=== PATIENT | female | born 1945 | race Caucasian/White ===

== ENCOUNTER → 2016-11-13 | Outpatient (CLI) | payer OTHER ==
[~2016-11-13] MED LIST: ACET-24 PO; ACET500T57 PO; ALKA SELTZER PO; AMOX500C3 PO; ASPEC81 PO; ASPI325T45 PO; CEFU500T16 PO; CLAR1TAB25 PO; CLB/200 PO; DENO60SO INJ; DICL1GEL12 TOP; DICLOFENAC GEL 1% TOP; FURO-85 PO; HYDR-5688 PO; LABE100T23 PO; LABE1TAB28 PO; MELO7.5T5 PO; METR-105 PO; METR1TAB4 PO; MULT-506 PO; OXYSR10 PO; RXC5 PO; SENN1TAB80 PO; SNK PO; ZOLP10TA PO
== END | disposition home or self-care (01) ==
LOC: C.LABPBG 15:03
PROVIDERS: ATTEND Urology
DX: R39.15 Urgency of urination (principal)

== ENCOUNTER → 2017-01-01 | Outpatient (CLI) | payer OTHER ==
[~2017-01-01] MED LIST changes: +CLAR-78 PO; -CLAR1TAB25 PO; -SENN1TAB80 PO; +SENN8.6T13 PO
== END | disposition home or self-care (01) ==
LOC: C.RDSM 07:59
PROVIDERS: ATTEND Physical Medicine & Rehabilitation
DX: M54.5 Low back pain (principal)

== ENCOUNTER → 2017-01-05 | Outpatient (CLI) | payer OTHER | END | disposition home or self-care (01) | LOC: C.RDSM 13:55 | PROVIDERS: ATTEND Orthopaedic Surgery Sports Medicine | DX: M17.0 Bilateral primary osteoarthritis of knee (principal) ==

== ENCOUNTER 2017-01-16 07:07 | Inpatient (IN) | payer OTHER ==
[2017-01-15 08:35] VITALS: BMI 31.0
--- NOTE | 2017-01-15 08:53 | HISTORY & PHYSICAL EXAMINATION ---
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 She has valgus alignment, bone to bone changes lateral compartment, osteophytes medial compartment and lateral compartment. She has failed attempts at conservative management including physical therapy, anti-inflammatories, relative rest, activity modification and presents for total knee arthroplasty. PAST MEDICAL HISTORY: Significant for hypertension, Lyme disease, osteoarthritis of the spine, acid reflux. FAMILY HISTORY: Otherwise unremarkable and noncontributory. SOCIAL HISTORY: The patient denies history of alcohol use, smoking or recreational drug use. PAST SURGICAL HISTORY: Significant for hysterectomy 35 years ago, right knee ligament surgery 30 years ago, right eye 5 years ago, knee scoped left knee 6 months ago. MEDICATIONS: Include Ambien 10 mg every day, Celebrex 200 mg p.o. daily. REVIEW OF SYSTEMS: Otherwise unremarkable. See history of present illness for pertinent positives. PHYSICAL EXAMINATION: GENERAL: This is a very pleasant 71-year-old white female, alert and oriented x3, in no acute distress. HEENT: Otherwise unremarkable. HEART: Irregular at 74 beats per minute. LUNGS: Clear without rales, rhonchi, or wheezes noted. ABDOMEN: Soft, nontender, nondistended. Bowel sounds are present in all 4 quadrants. No rectal examination was performed. MUSCULOSKELETAL EXAMINATION: Consistent with that of DJD of the left knee. ASSESSMENT AND PLAN: For total knee arthroplasty, postoperative pain management, DVT prophylaxis as necessary.
--- NOTE | 2017-01-15 09:11 | PAT Medication Instructions ---
Service Date Jan 15, 2017. Current Home Medication List Cefuroxime Axetil (Ceftin), 500 MG PO BID Celecoxib (CeleBREX), 200 MG PO QAM Denosumab (Prolia), 1 DOSE INJ [id number] Furosemide (Lasix), 20 MG PO QAM Labetalol Hcl (Labetalol Hcl), 100 MG PO BID Meloxicam (Mobic), 15 MG PO QAM Metronidazole (Flagyl), 250 MG PO TID Multivitamin (Multivitamin), 1 TAB PO QAM Zolpidem Tartrate (Ambien), 10 MG PO HS [Maricarmen [place]], 2 TAB PO PRN [Diclofenac Gel 1%], 1 DOSE TOP BID Medication Instructions For Your Scheduled Surgery Denosumab (Prolia), 1 DOSE INJ [id number] (continue as directed) - Check with surgeon for instructions: Meloxicam (Mobic), 15 MG PO QAM Celecoxib (CeleBREX), 200 MG PO QAM - Hold the following medications 24 hours prior to surgery: [Diclofenac Gel 1%], 1 DOSE TOP BID Multivitamin (Multivitamin), 1 TAB PO QAM - Hold the following medications the morning of surgery: [Maricarmen [place]], 2 TAB PO PRN Furosemide (Lasix), 20 MG PO QAM - Take the following medications the morning of surgery with a sip of water: Metronidazole (Flagyl), 250 MG PO TID Labetalol Hcl (Labetalol Hcl), 100 MG PO BID Cefuroxime Axetil (Ceftin), 500 MG PO BID - Take the following medications as scheduled the night before surgery: [Maricarmen [place]], 2 TAB PO PRN Zolpidem Tartrate (Ambien), 10 MG PO HS Metronidazole (Flagyl), 250 MG PO TID Labetalol Hcl (Labetalol Hcl), 100 MG PO BID Cefuroxime Axetil (Ceftin), 500 MG PO BID If you have any questions please call us at [phone] or [phone] or [phone]
--- NOTE | 2017-01-15 09:41 | DIAGNOSTIC IMAGING REPORT ---
CHEST PREADMISSION(PA/LAT) HISTORY: 71 years-old Female preadmission exam COMPARISON: None available TECHNIQUE: Frontal and lateral views of the chest FINDINGS: Cardiomediastinal and hilar silhouettes are within normal limits. No pneumothorax, pleural effusion, focal airspace consolidation or overt pulmonary edema. Mild to moderate degenerative changes about the shoulders bilaterally. There is mild convex left curvature of the lumbar spine, not completely imaged. IMPRESSION: No acute cardiopulmonary process. The above report was generated using voice recognition software. It may contain grammatical, syntax or spelling errors. Electronically signed by: Balbir Vizcarra M.D. 01/15/2017 9:39 AM Dictated Date/Time: 01/15/2017 9:38 AM
[2017-01-15 10:34] LABS: BASO % 0.4 %; BASO ABS # 0.02 K/uL (0-0.2); COMPLETE YES; EOS % 1.8 %; HEMATOCRIT 37.8 % (37-47); LYMPH % 35.3 %; LYMPH ABS # 1.58 K/uL (1.2-3.4); MEAN CELL VOLUME 95.2 fL (80-100); MEAN CORPUSCULAR HEMOGLOBIN 31.5 pg (25-34); MEAN CORPUSCULAR HGB CONC 33.1 g/dl (32-36); MONO % 14.5 %; PLATELET COUNT 257 K/uL (130-400); RED BLOOD COUNT 3.97 M/uL (4.2-5.4); WHITE BLOOD COUNT 4.48 K/uL (4.8-10.8)
[2017-01-15 10:38] LABS: URINE APPEARANCE CLEAR (CLEAR); URINE BILIRUBIN NEG (NEG); URINE COLOR YELLOW; URINE NITRITE NEG (NEG); URINE PH 5.5 (4.5-7.5); URINE SPECIFIC GRAVITY 1.031 (1.000-1.030); UROBILINOGEN NEG (NEG)
[2017-01-15 10:41] LABS: MANUAL MICROSCOPIC REQUIRED? NO; REVIEW REQ? YES
[2017-01-15 10:43] LABS: PARTIAL THROMBOPLASTIN RATIO 1.1; PROTHROMBIN TIME (PATIENT) 10.6 SECONDS (9.0-12.0)
[2017-01-15 11:20] LABS: ESTIMATED AVERAGE GLUCOSE 103 mg/dl; HA1C FLAG Normal (Normal)
[2017-01-16] VITALS (9 sets, daily range): BP systolic 100–157; BP diastolic 62–92; PULSE 55–79; TEMP 36.3–36.9; O2SAT 95–100; Ht 170.2 cm; Wt 91.0 kg
[~2017-01-16] VITALS: Ht 170.2 cm; Wt 91.0 kg
--- NOTE | 2017-01-16 06:53 | History & Physical Bridge Note ---
H&P Re-Evaluation Bridge Note: I have examined the patient, reviewed the History & Physical and in the interval since the performance of the History & Physical I have noted the following changes of clinical significance: No changes noted
[~2017-01-16 07:07] MED LIST changes: -ACET-24 PO; -ACET500T57 PO; +ACETAMINOPHEN 500 MG TAB PO SCH; -AMOX500C3 PO; -ASPEC81 PO; -ASPI325T45 PO; +BUPIVACAINE 0.25% 30 ML VIAL ONE; +BUPIVACAINE 0.5 % 5 MG/1 ML PF 10ML VIAL ONE; +CEFAZOLIN 2000 MG/60 ML D5W 60 ML IV SCH; -CLAR-78 PO; +CeleBREX 200 MG CAP PO SCH; +DEXAMETHASONE 4 MG TAB PO SCH; -DICL1GEL12 TOP; +FAMOTIDINE 20 MG TAB PO SCH; +GABAPENTIN 300 MG CAP PO SCH; -HYDR-5688 PO; -LABE1TAB28 PO; +LACTATED RINGER'S 1000ML 1,000 ML IV SCH; +LACTATED RINGER'S 1000ML 500 ML IV ONE; +LACTATED RINGER'S 1000ML IV SCH; +METOCLOPRAMIDE HCL 10 MG TAB PO SCH; -METR-105 PO; -OXYSR10 PO; +ROPIVACAINE 5MG/ML 30 ML 150 MG, BUPIVACAINE/EPINEPHR 0.5% MPF 30 ML, KETOROLAC TROMETH... INFIL SCH; -RXC5 PO; -SENN8.6T13 PO; -SNK PO; +TRANEXAMIC ACID INJ 1,000 MG in SODIUM CHLORIDE 0.9% 100ML 100 ML IV SCH
[2017-01-16] MEDS ORDERED: FENTANYL CITRATE INJ 50 MCG/1 ML 2 ML VIAL ONE (07:30)
[2017-01-16] MEDS ORDERED: MIDAZOLAM HCL 1 MG/ML 2ML VIAL ONE (07:30)
[2017-01-16] MEDS ORDERED: EpHEDrine SULFATE INJ 50 MG/ML AMP IV PRN (07:45)
[2017-01-16] MEDS ORDERED: ATROPINE SULFATE 0.1 MG/ML 5ML SYR IV PRN (07:45)
[2017-01-16] MEDS ORDERED: ONDANSETRON INJ 2 MG/ML 2 ML VIAL IV PRN ×2 (07:45→12:00)
[2017-01-16] MEDS ORDERED: FENTANYL CITRATE INJ 50 MCG/1 ML 2 ML VIAL IV PRN (07:45)
[2017-01-16] MEDS ORDERED: ORTHO JOINT ANESTHETIC ONE (08:42)
[2017-01-16] MEDS ORDERED: BACITRACIN 50000 UNIT VIAL ONE (08:42)
[2017-01-16] MEDS ORDERED: POVIDONE-IODINE OP SOLN 30 ML BTL ONE (08:42)
[2017-01-16] MEDS: TRANEXAMIC ACID INJ 1,000 MG in SODIUM CHLORIDE 0.9% 100ML 100 ML IV SCH ×2 (09:41→14:14)
[2017-01-16] MEDS ORDERED: PROPOFOL IV EMULSION 10 MG/ML 20 ML VIAL IV ONE (10:10)
[2017-01-16] MEDS ORDERED: LIDOCAINE HCL 2% 2 ML VIAL (20MG/ML) ONE (10:10)
--- NOTE | 2017-01-16 11:05 | [facility] Operative Report ---
Operative Report Operative Date Jan 16, 2017. Pre-Operative Diagnosis Left Knee End-Stage Degenerative Joint Disease Post-Operative Diagnosis Left Knee End-Stage Degenerative Joint Disease Procedure(s) Performed Left Total Knee Arthroplasty, Cemented Mercado nephew journey to an en bloc Ray Orthoplast size 4 femur 5 tibia 10 poly-[address] Rodriguez Vascular Radiologist Surgeon(s) Nba Buckner PA-C Estimated Blood Loss 5 mL Findings Severe end-stage tricompartmental degenerative joint disease with varus alignment left knee Specimens A: Left Knee Bone and Tissue Complication(s) None After proper prepping and draping of the left lower extremity anterior midline incision was made over the region of the extensor extensor mechanism after meticulous hemostasis was obtained and maintained in subcutaneous tissues a medial parapatellar incision was made The patella was subluxed lateralward the medial lateral gutter were cleaned from any hypertrophic synovitis and scar tissue of the distal femoral block was placed and the distal femoral osteotomy cut was made subsequently the chamfers anterior and posterior osteotomy cuts were made utilizing the 4-in-1 block the tibia was subsequently subluxed anteriorward medial and ateral meniscal remnants were excised in their entirety remnants of the anterior and posterior cruciate ligaments were excised in their entirety excellent exposure of the proximal tibia was obtained the tibial osteotomy guide was placed on the proximal tibial osteotomy cut was made once again the knee was irrigated with copious amounts of sterile saline solution the patella was subsequently everted lateralward thickened scar tissue around the patella was removed the patella was subsequently cut utilizing a freehand technique and was drilled prepared for final preparation and placement of patella socially flexion-extension gaps were checked and the equal and symmetric trials were placed to the appropriate femoral and tibial trials with poly-spacer being placed for equal flexion and extension gaps and full range of motion including extension to 0 and flexion to 140 the trial components after having been taken to recovery range of motion was subsequently removed meticulous hemostasis was obtained and maintained subsequently a knee block injection of joint cocktail including ropivacaine 0.5% 150 mg. Bupivacaine 0.5 % epinephrine 1-200,030 mL's toradol 30 mg dexamethasone 4 mg ketamine 10 mg clonidine 100 micrograms normal saline solution 30 mg was infiltrated into the soft tissues of the posterior knee medial lateral gutters and periosteal synovium special attention was paid to protect neurovascular structures at all times subsequently trial components having been removed the knee was irrigated with sterile saline solution. debris was removed the proximal tibia was subsequently prepared and was made ready for the placement of the tibial component tibial component was also cemented and tamped into position the femoral component was subsequently placed and cemented in the position the patellar component was subsequently cemented in position because hemostasis once again obtained and maintained wound having been thoroughly irrigated with debridement and debridement lavage was performed as well as a medial parapatellar incision closed with #1 Vicryl in interrupted fashion subcutaneous was closed with #2 Vicryl skin was closed with skin clips. PA-C was necessary for prepping and drapping as well as wound closure of deep fascia Sub cutaneous tissue and skin and was necessary for the case. A sterile compressive dressing was placed patient was taken to recovery in stable condition of report dictated by Michael Sheppard attest to the content of the Intraoperative Record and any orders documented therein. Any exceptions are noted below. Disposition Recovery Room / PACU Indications After proper prepping and draping of the left lower extremity anterior midline incision was made over the region of the extensor extensor mechanism after meticulous hemostasis was obtained and maintained in subcutaneous tissues a medial parapatellar incision was made The patella was subluxed lateralward the medial lateral gutter were cleaned from any hypertrophic synovitis and scar tissue of the distal femoral block was placed and the distal femoral osteotomy cut was made subsequently the chamfers anterior and posterior osteotomy cuts were made utilizing the 4-in-1 block the tibia was subsequently subluxed anteriorward medial and ateral meniscal remnants were excised in their entirety remnants of the anterior and posterior cruciate ligaments were excised in their entirety excellent exposure of the proximal tibia was obtained the tibial osteotomy guide was placed on the proximal tibial osteotomy cut was made once again the knee was irrigated with copious amounts of sterile saline solution the patella was subsequently everted lateralward thickened scar tissue around the patella was removed the patella was subsequently cut utilizing a freehand technique and was drilled prepared for final preparation and placement of patella socially flexion-extension gaps were checked and the equal and symmetric trials were placed to the appropriate femoral and tibial trials with poly-spacer being placed for equal flexion and extension gaps and full range of motion including extension to 0 and flexion to 140 the trial components after having been taken to recovery range of motion was subsequently removed meticulous hemostasis was obtained and maintained subsequently a knee block injection of joint cocktail including ropivacaine 0.5% 150 mg. Bupivacaine 0.5 % epinephrine 1-200,030 mL's toradol 30 mg dexamethasone 4 mg ketamine 10 mg clonidine 100 micrograms normal saline solution 30 mg was infiltrated into the soft tissues of the posterior knee medial lateral gutters and periosteal synovium special attention was paid to protect neurovascular structures at all times subsequently trial components having been removed the knee was irrigated with sterile saline solution. debris was removed the proximal tibia was subsequently prepared and was made ready for the placement of the tibial component tibial component was also cemented and tamped into position the femoral component was subsequently placed and cemented in the position the patellar component was subsequently cemented in position because hemostasis once again obtained and maintained wound having been thoroughly irrigated with debridement and debridement lavage was performed as well as a medial parapatellar incision closed with #1 Vicryl in interrupted fashion subcutaneous was closed with #2 Vicryl skin was closed with skin clips. PA-C was necessary for prepping and drapping as well as wound closure of deep fascia Sub cutaneous tissue and skin and was necessary for the case. A sterile compressive dressing was placed patient was taken to recovery in stable condition of report dictated by Michael Sheppard attest to the content of the Intraoperative Record and any orders documented therein. Any exceptions are noted below. Description of Procedure After proper prepping and draping of the left lower extremity anterior midline incision was made over the region of the extensor extensor mechanism after meticulous hemostasis was obtained and maintained in subcutaneous tissues a medial parapatellar incision was made The patella was subluxed lateralward the medial lateral gutter were cleaned from any hypertrophic synovitis and scar tissue of the distal femoral block was placed and the distal femoral osteotomy cut was made subsequently the chamfers anterior and posterior osteotomy cuts were made utilizing the 4-in-1 block the tibia was subsequently subluxed anteriorward medial and ateral meniscal remnants were excised in their entirety remnants of the anterior and posterior cruciate ligaments were excised in their entirety excellent exposure of the proximal tibia was obtained the tibial osteotomy guide was placed on the proximal tibial osteotomy cut was made once again the knee was irrigated with copious amounts of sterile saline solution the patella was subsequently everted lateralward thickened scar tissue around the patella was removed the patella was subsequently cut utilizing a freehand technique and was drilled prepared for final preparation and placement of patella socially flexion-extension gaps were checked and the equal and symmetric trials were placed to the appropriate femoral and tibial trials with poly-spacer being placed for equal flexion and extension gaps and full range of motion including extension to 0 and flexion to 140 the trial components after having been taken to recovery range of motion was subsequently removed meticulous hemostasis was obtained and maintained subsequently a knee block injection of joint cocktail including ropivacaine 0.5% 150 mg. Bupivacaine 0.5 % epinephrine 1-200,030 mL's toradol 30 mg dexamethasone 4 mg ketamine 10 mg clonidine 100 micrograms normal saline solution 30 mg was infiltrated into the soft tissues of the posterior knee medial lateral gutters and periosteal synovium special attention was paid to protect neurovascular structures at all times subsequently trial components having been removed the knee was irrigated with sterile saline solution. debris was removed the proximal tibia was subsequently prepared and was made ready for the placement of the tibial component tibial component was also cemented and tamped into position the femoral component was subsequently placed and cemented in the position the patellar component was subsequently cemented in position because hemostasis once again obtained and maintained wound having been thoroughly irrigated with debridement and debridement lavage was performed as well as a medial parapatellar incision closed with #1 Vicryl in interrupted fashion subcutaneous was closed with #2 Vicryl skin was closed with skin clips. PA-C was necessary for prepping and drapping as well as wound closure of deep fascia Sub cutaneous tissue and skin and was necessary for the case. A sterile compressive dressing was placed patient was taken to recovery in stable condition of report dictated by Michael I attest to the content of the Intraoperative Record and any orders documented therein. Any exceptions are noted below. I attest to the content of the Intraoperative Record and any orders documented therein. Any exceptions are noted below.
[2017-01-16] MEDS ORDERED: BISACODYL 10 MG SUPP PR PRN (12:00)
[2017-01-16] MEDS ORDERED: MAGNESIUM HYDROXIDE SUSP 30 ML UDC PO PRN (12:00)
[2017-01-16] MEDS ORDERED: MoRPHine SULFATE 2 MG/ML CARP IV PRN (12:00)
[2017-01-16] MEDS ORDERED: ALUMINUM/MAGNESIUM/SIMETH (MAALOX MAX) 30 ML UDC PO PRN (12:00)
[2017-01-16] MEDS ORDERED: MoRPHine SULFATE 10 MG/ML CARP/VIAL IV PRN (12:15)
--- NOTE | 2017-01-16 12:20 | Anesthesiology Progress Note ---
Anesthesia Post Op Note Date & Time Jan 16, 2017 at 12:20 Vital Signs Pain Intensity: 0 Vital Signs Past 12 Hours Date Time Temp Pulse Resp B/P (MAP) Pulse Ox O2 Delivery O2 Flow Rate FiO2 01/16/17 12:10 36.7 69 14 131/71 97 Oxymask 2 01/16/17 12:00 66 14 129/72 98 Oxymask 5 01/16/17 11:50 67 16 130/75 98 Oxymask 10 01/16/17 11:45 36.8 77 16 119/77 96 Oxymask 10 01/16/17 07:45 36.9 69 20 157/92 98 Room Air Notes Mental Status: alert / awake / arousable, participated in evaluation Pt Amnestic to Procedure: Yes Nausea / Vomiting: adequately controlled Pain: adequately controlled Airway Patency, RR, SpO2: stable & adequate BP & HR: stable & adequate Hydration State: stable & adequate Neuraxial Anesthesia: was administered, sensory block is resolving Anesthetic Complications: no major complications apparent
--- NOTE | 2017-01-16 12:23 | DIAGNOSTIC IMAGING REPORT ---
LEFT KNEE 1 OR 2 VIEWS ROUTINE CLINICAL HISTORY: AP/LATERAL IN PACU LEFT KNEE joint replacement COMPARISON: None. DISCUSSION: Anatomic alignment status post total left knee replacement. Good contact between prosthetic and underlying bone. Surgical drains are in position. Expected soft tissue postoperative change. IMPRESSION: Anatomic alignment status post total left knee replacement The above report was generated using voice recognition software. It may contain grammatical, syntax or spelling errors. Electronically signed by: Sameer Schroeder M.D. 01/16/2017 12:22 PM Dictated Date/Time: 01/16/2017 12:21 PM
[2017-01-16] MEDS: D5W AND 1/2NSS + 20MEQ KCL 1,000 ML IV SCH (14:10)
[2017-01-16] MEDS: KETOROLAC TROMETHAMINE 15 MG/ML VIAL IV. SCH ×2 (14:10→19:34)
[2017-01-16] MEDS: ACETAMINOPHEN 500 MG TAB PO SCH ×2 (14:11→21:25)
[2017-01-16] MEDS: OXYCODONE HCL IR 5 MG TAB (IMMEDIATE RELEASE) PO PRN (16:49)
[2017-01-16] MEDS: CEFAZOLIN IV 2,000 MG in DEXTROSE 5% 50ML 50 ML IV SCH (17:57)
[2017-01-16] MEDS: FERROUS GLUCONATE 324 MG TAB PO SCH (17:58)
[2017-01-16] MEDS: LABETALOL HCL 100 MG TAB PO SCH (21:00)
[2017-01-16] MEDS: ASPIRIN 81 MG ECTAB PO SCH (21:24)
[2017-01-16] MEDS: SENNA 8.6 MG TAB PO SCH (21:24)
[2017-01-16] MEDS: OXYCODONE HCL 10 MG TABCR (OXYCONTIN) PO SCH (21:24)
[2017-01-16] MEDS: DOCUSATE SODIUM 100 MG CAP PO SCH (21:24)
[2017-01-16] MEDS: ZOLPIDEM TARTRATE 10 MG TAB PO SCH (21:24)
[2017-01-17] VITALS (8 sets, daily range): BP systolic 117–143; BP diastolic 69–77; PULSE 69–85; TEMP 36.5–36.8; O2SAT 92–98
[2017-01-17] MEDS: D5W AND 1/2NSS + 20MEQ KCL 1,000 ML IV SCH ×2 (00:18→10:00)
[2017-01-17] MEDS: OXYCODONE HCL IR 5 MG TAB (IMMEDIATE RELEASE) PO PRN ×4 (00:19→20:23)
[2017-01-17] MEDS: KETOROLAC TROMETHAMINE 15 MG/ML VIAL IV. SCH ×4 (02:14→20:18)
[2017-01-17] MEDS: CEFAZOLIN IV 2,000 MG in DEXTROSE 5% 50ML 50 ML IV SCH (02:14)
[2017-01-17] MEDS: MoRPHine SULFATE 4 MG/ML 1 ML CARP\\VIAL IV PRN ×2 (02:15→14:32)
[2017-01-17] MEDS: ACETAMINOPHEN 500 MG TAB PO SCH ×3 (06:05→21:31)
[2017-01-17 06:20] LABS: HEMATOCRIT 31.7 % (37-47); MEAN CELL VOLUME 96.1 fL (80-100); MEAN CORPUSCULAR HEMOGLOBIN 31.5 pg (25-34); MEAN CORPUSCULAR HGB CONC 32.8 g/dl (32-36); MEAN PLATELET VOLUME 9.9 fL (7.4-10.4); PLATELET COUNT 246 K/uL (130-400); WHITE BLOOD COUNT 16.57 K/uL (4.8-10.8)
[2017-01-17 06:48] LABS: BUN/CREATININE RATIO 13.5 (10-20); CALCIUM 8.4 mg/dl (8.5-10.1); POTASSIUM 5.2 mmol/L (3.5-5.1)
--- NOTE | 2017-01-17 08:02 | Orthopedic Progress Note ---
Orthopedic Progress Note Date of Service Jan 17, 2017. Subjective Post OP Day: 1 Reports: feeling well, pain controlled w PO medications, Denies: chest pain, SOB , nausea / vomiting, light headedness, calf pain Objective calves soft nontender, N/V intact, dressing C/D/I, A&O x3, toes mobile, hemovac drainage (40ml latest shift) Date Time Temp Pulse Resp B/P (MAP) Pulse Ox O2 Delivery O2 Flow Rate FiO2 01/17/17 02:30 36.5 76 16 138/77 (97) 98 Room Air 01/17/17 00:05 Room Air 01/16/17 23:25 36.4 68 16 114/66 (82) 95 Room Air 01/16/17 18:50 36.3 79 16 118/69 (85) 97 Nasal Cannula 2.0 01/16/17 16:10 100 Nasal Cannula 2.0 01/16/17 15:55 67 16 129/73 (91) 100 Nasal Cannula 2.0 01/16/17 14:55 71 16 100/62 (75) 01/16/17 13:55 61 16 120/75 (90) 01/16/17 13:25 55 16 130/80 (97) 01/16/17 12:55 96 Nasal Cannula 2.0 01/16/17 12:55 36.4 58 14 132/76 (94) 96 Nasal Cannula 2.0 01/16/17 12:55 96 Nasal Cannula 2.0 01/16/17 12:30 62 13 137/76 98 Oxymask 2 01/16/17 12:20 64 14 130/76 98 Oxymask 2 01/16/17 12:10 36.7 69 14 131/71 97 Oxymask 2 01/16/17 12:00 66 14 129/72 98 Oxymask 5 01/16/17 11:50 67 16 130/75 98 Oxymask 10 01/16/17 11:45 36.8 77 16 119/77 96 Oxymask 10 Laboratory Results 24 Hours: Test 01/17/17 05:51 Hematocrit 31.7 % Hemoglobin 10.4 g/dL Assessment & Plan Assessment: POD 1 s/p Left TKA Plan: PT/OT Planning on Home with Home Health Services Inhouse Planning Pain Management: Celebrex, Toradol, Oxycontin, Morphine, PO Tylenol, Oxy IR DVT Prophylaxis: TEDs, SCDs, ASA Discharge Planning Discharge Planning: home with home health Pain Management: Celebrex, Oxycontin, PO Tylenol, Oxy IR DVT Prophylaxis: TEDs, ASA Therapy: Physical Therapy
--- NOTE | 2017-01-17 08:07 | Discharge Instructions ---
Discharge Instructions Date of Service Jan 17, 2017. Admission Reason for Admission: Left Knee Osteoarthritis Discharge Discharge Diagnosis / Problem: Left Knee Djd Discharge Goals Goal(s): Decrease discomfort, Improve function Activity Recommendations Activity Limitations: per Instructions/Follow-up section Weightbearing Status: Left weightbearing (as tolerated) . Instructions / Follow-Up Instructions / Follow-Up ACTIVITY RECOMMENDATIONS: SELF CARE INSTRUCTIONS AFTER TOTAL KNEE REPLACEMENT A. You may need to continue a physical therapy program after discharge from the hospital. There are several options available to you. Your doctor will assist you in selecting the best one for you. 1. An out-patient facility 2 to 3 times a week for therapy or home therapy. 2. Continue working on all exercises taught to you in the hospital. Your goals should be to increase bending of your knee to 90 degrees and beyond and to fully straighten your knee. B. You may progress at your own pace from walking with a walker or crutches to a cane; then to no assistive devices. C. Make walking a part of your daily routine. Be up as much as comfortable with rest periods throughout the day. Rest with leg elevation is very important. Use the ice wrap frequently for the first 3-4 weeks. D. There are no restrictions on activities. You may ride in a car, shop, participate in can carrier and all social activities. E. Wear the long elastic stockings (GILL hose) 20 hours a day for 2 weeks after surgery. They can be removed several times a day for laundering and for a bath. F. You may shower, no tub baths until cleared by your doctor. SPECIAL CARE INSTRUCTIONS: VERY IMPORTANT TO READ AND REVIEW A. There are a few signs you need to watch for after you are home. Call [facility] if you notice any of the followin. Increased severe knee pain. Some pain is expected especially when you exercise. 2. Increased swelling in your leg or knee; pain or swelling of the calf muscle in either lower leg. 3. Any fluid drainage from the incision. 4. Shortness of breath or chest pain. B. Please call [facility] at if you have any concerns or questions about your operation or recovery. The doctor or his nurse will return your call promptly. C. You must take antibiotics before dental work, bladder, bowel or other surgery. Your doctor will provide you with a permanent care to carry describing this precaution. IMPORTANT: * REMEMBER TO TAKE ASPIRIN, 81 MG, TWICE DAILY FOR 4 WEEKS UNLESS OTHERWISE DIRECTED. THIS IS YOUR BLOOD THINNER. * HIGH RISK PATIENTS MAY BE PRESCRIBED A STRONGER BLOOD THINNER. THIS WILL BE PROVIDED AT DISCHARGE. * CALL IF INCREASED PAIN, REDNESS, DRAINAGE OR FEVER GREATER THAT 101. * WEAR GILL HOSE 20 HOURS PER DAY FOR 2 WEEKS. * DERMABOND Prineo- This is a mesh tape dressing that is covered with glue. It should remain in place until the incision is properly healed, usually 10-14 days. This dressing is designed to naturally slough off. You may trim the excess mesh tape as it peels off. Incision may be briefly wet in a shower. Dry immediately by blotting with a clean, dry towel. Do not bath or swim until instructed by your doctor. Do not scratch, rub, or pick at the dressing. Do not apply any topical ointments or lotions until dressing is completely removed and/or instructed by your doctor. There may be a small piece of suture material at one end of your incision. Do not pull or trim this. If it is bothersome or catching on clothing, you may cover it with a band-aid. . FOLLOW UP VISIT: If appointment is not already scheduled: Please call [facility] to make a follow-up appointment for 2 weeks after your surgery at . Current Hospital Diet Patient's current hospital diet: Regular Diet Discharge Diet Recommended Diet: Regular Diet Procedures Procedures Performed: Left Total Knee Arthroplasty, Cemented Mercado nephew journey to an en bloc Ray Orthoplast size 4 femur 5 tibia 10 poly-32 oval patella Pending Studies Studies pending at discharge: no Laboratory Results Hemoglobin A1c Test 01/15/17 09:12 Range/Units Estimated Average Glucose 103 mg/dl Hemoglobin A1c 5.2 4.5-5.6 % Medical Emergencies . Who to Call and When: Medical Emergencies: If at any time you feel your situation is an emergency, please call 911 immediately. . Non-Emergent Contact Non-Emergency issues call your: Surgeon Call Non-Emergent contact if: temperature is above 101.5, your pain is not controlled, your pain is worsening, wound has increased drainage, wound has increased redness . "Provider Documentation" section prepared by Nba Buckner. . VTE Core Measure Inpt VTE Proph given/why not?: Other Anticoagulation, T.E.DAmy Stockings, SCD's [place] Drug Monitoring Program Search Results: patient reviewed within database, no issues identified
[2017-01-17] MEDS: DOCUSATE SODIUM 100 MG CAP PO SCH ×2 (08:56→21:31)
[2017-01-17] MEDS: FERROUS GLUCONATE 324 MG TAB PO SCH ×3 (08:56→17:38)
[2017-01-17] MEDS: MULTIVITAMIN TAB PO SCH (08:57)
[2017-01-17] MEDS: ASPIRIN 81 MG ECTAB PO SCH ×2 (08:57→21:31)
[2017-01-17] MEDS: PANTOprazole SOD 40 MG TAB PO SCH (08:58)
[2017-01-17] MEDS ORDERED: CeleBREX 200 MG CAP PO SCH (09:00)
[2017-01-17] MEDS: LABETALOL HCL 100 MG TAB PO SCH ×2 (09:01→21:31)
[2017-01-17] MEDS: OXYCODONE HCL 10 MG TABCR (OXYCONTIN) PO SCH ×2 (09:06→21:32)
--- NOTE | 2017-01-17 10:11 | Anesthesiology Progress Note ---
Anesthesia Post Op Note Date & Time Jan 17, 2017 at 10:10 Vital Signs Vital Signs Past 12 Hours Date Time Temp Pulse Resp B/P (MAP) Pulse Ox O2 Delivery O2 Flow Rate FiO2 01/17/17 09:00 81 134/71 (92) 01/17/17 08:07 96 Room Air 01/17/17 08:05 36.7 69 12 134/72 (92) 96 Room Air 01/17/17 07:05 Room Air 01/17/17 02:30 36.5 76 16 138/77 (97) 98 Room Air 01/17/17 00:05 Room Air 01/16/17 23:25 36.4 68 16 114/66 (82) 95 Room Air Notes Mental Status: alert / awake / arousable, participated in evaluation Pt Amnestic to Procedure: Yes Nausea / Vomiting: adequately controlled Pain: adequately controlled Airway Patency, RR, SpO2: stable & adequate BP & HR: stable & adequate Hydration State: stable & adequate Neuraxial Anesthesia: sensory block resolved Anesthetic Complications: no major complications apparent
[2017-01-17] MEDS: SENNA 8.6 MG TAB PO SCH (21:31)
[2017-01-17] MEDS: ZOLPIDEM TARTRATE 10 MG TAB PO SCH (21:32)
[2017-01-18] MEDS: KETOROLAC TROMETHAMINE 15 MG/ML VIAL IV. SCH ×2 (01:31→07:26)
[2017-01-18] MEDS: ACETAMINOPHEN 500 MG TAB PO SCH (06:09)
[2017-01-18 06:54] VITALS: BP 136/74; PULSE 88; TEMP 36.8; O2SAT 91
[2017-01-18] MEDS: FERROUS GLUCONATE 324 MG TAB PO SCH (08:54)
[2017-01-18 08:55] VITALS: BP 146/78; PULSE 79
[2017-01-18] MEDS: LABETALOL HCL 100 MG TAB PO SCH (08:55)
[2017-01-18] MEDS: OXYCODONE HCL 10 MG TABCR (OXYCONTIN) PO SCH (08:55)
[2017-01-18] MEDS: DOCUSATE SODIUM 100 MG CAP PO SCH (08:55)
[2017-01-18] MEDS: PANTOprazole SOD 40 MG TAB PO SCH (08:55)
[2017-01-18] MEDS: ASPIRIN 81 MG ECTAB PO SCH (08:55)
[2017-01-18] MEDS: MULTIVITAMIN TAB PO SCH (08:55)
[2017-01-18 09:38] VITALS: BP 146/78; PULSE 79; TEMP 36.8; O2SAT 91
--- NOTE | 2017-01-18 09:56 | Orthopedic Progress Note ---
Orthopedic Progress Note Date of Service Jan 18, 2017. Subjective Post OP Day: 2 Reports: feeling well, pain controlled w PO medications, Denies: complaints, chest pain, SOB, nausea / vomiting, light headedness, calf pain Objective calves soft nontender, N/V intact, incision C/D/I, A&O x3, toes mobile Date Time Temp Pulse Resp B/P (MAP) Pulse Ox O2 Delivery O2 Flow Rate FiO2 01/18/17 09:38 36.8 79 16 91 Room Air 01/18/17 08:55 79 146/78 (100) 01/18/17 07:30 Room Air 01/18/17 06:54 36.8 88 16 136/74 (94) 91 Room Air 01/17/17 23:58 Room Air 01/17/17 22:55 36.8 85 16 135/69 (91) 97 Room Air 01/17/17 16:15 Room Air 01/17/17 15:13 36.6 78 16 143/77 (99) 92 Room Air 01/17/17 12:08 36.8 72 14 117/76 (90) 96 Room Air 01/17/17 11:30 75 95 Assessment & Plan Assessment: POD 2 s/p Left TKA Plan: PT/OT Planning on Home with Home Health Services Discharge to home today Inhouse Planning Pain Management: Celebrex, Toradol, Oxycontin, Morphine, PO Tylenol, Oxy IR DVT Prophylaxis: TEDs, SCDs, ASA Discharge Planning Discharge Planning: home with home health Pain Management: Celebrex, Oxycontin, PO Tylenol, Oxy IR DVT Prophylaxis: TEDs, ASA Therapy: Physical Therapy
[2017-01-18] MEDS ORDERED: OXYSR10 PO (10:06)
[2017-01-18] MEDS ORDERED: SNK PO (10:06)
[2017-01-18] MEDS ORDERED: ASPEC81 PO (10:06)
[2017-01-18] MEDS ORDERED: CLB/200 PO (10:06)
[2017-01-18] MEDS ORDERED: RXC5 PO (10:06)
[2017-01-18] MEDS ORDERED: ACET-24 PO (10:06)
[2017-01-18] MEDS: OXYCODONE HCL IR 5 MG TAB (IMMEDIATE RELEASE) PO PRN (10:56)
--- NOTE | 2017-01-18 12:52 | DISCHARGE SUMMARY ---
DISCHARGE DIAGNOSIS: Degenerative joint disease left knee. SECONDARY DIAGNOSES: Hypertension, Lyme disease, osteoarthritis, gastroesophageal reflux disease. CONSULTS: None. COMPLICATIONS: None. PROCEDURES: Left total knee arthroplasty performed by Dr. Rodriguez on 01/16/2017. BRIEF HISTORY: As dictated in the history and physical. HOSPITAL SUMMARY: The patient was admitted on the above-noted date and had the above-noted surgery performed which she tolerated well. On the first postoperative day, she was feeling well and had no complaints. Pain was controlled. Dressings clean, dry and intact. Toes were mobile. Calves were soft and nontender. Vital signs were stable. She is afebrile. Hemoglobin was 10.4. She was started on physical therapy protocol and continued on DVT prophylaxis and pain management and was planning for home health services. By her second postoperative day, she continued to feel well and pain was controlled. Calves were soft and nontender. Incision was benign. Toes were mobile. Neurovascular intact. Vital signs were stable. She was afebrile and she was progressing with her physical therapy and it was felt she could be discharged to home. For further review, please see chart. LAB AND X-RAY DATA: As per chart. DISCHARGE INSTRUCTIONS: The patient was discharged to home in satisfactory condition on 01/18/2017. DIET: Regular. ACTIVITY: Weightbearing as tolerated left lower extremity. Follow TK instruction sheets and special care instructions as noted. Follow up with Dr. Rodriguez in 2 weeks. The patient to call for appointment if one has not been made for you. DISCHARGE MEDICATIONS: Acetaminophen 1000 mg p.o. q. 8 hours for 30 days, aspirin 81 mg p.o. b.i.d. for 30 days, OxyContin 10 mg p.o. q. 12 hours, oxycodone 5-10 mg p.o. q. 4 hours p.r.n., senna 17.2 mg p.o. at bedtime. Resume home meds as listed and stop taking meloxicam.
[2017-01-19] MEDS ORDERED: CeleBREX 200 MG CAP PO SCH (09:00)
[2017-03-02] MEDS ORDERED: SENN8.6T13 PO (08:03)
[2017-03-02] MEDS ORDERED: DICL1GEL12 TOP (08:03)
[2017-03-02] MEDS ORDERED: ACET500T57 PO (08:03)
[2017-03-02] MEDS ORDERED: CLB/200 PO (08:03)
== END 2017-01-18 11:50 | disposition home health service (06) | DRG 470 ==
LOC: C.ACU 07:07 → C.3E 08:20 → ENRESERV 12:33
PROVIDERS: ADMIT Orthopaedic Surgery; ATTEND Orthopaedic Surgery
PROC: 0SRD0J9 Replacement of Left Knee Joint with Synthetic Substitute, Cemented, Open Approach (ICD-10-PCS; principal; 2017-01-16 09:45)
DX: M17.12 Unilateral primary osteoarthritis, left knee (principal); A69.20 Lyme disease, unspecified; I10 Essential (primary) hypertension; K21.9 Gastro-esophageal reflux disease without esophagitis; M54.5 Low back pain; E66.9 Obesity, unspecified; M81.0 Age-related osteoporosis without current pathological fracture; M54.10 Radiculopathy, site unspecified; M21.062 Valgus deformity, not elsewhere classified, left knee; M47.9 Spondylosis, unspecified; Z79.899 Other long term (current) drug therapy; Z68.31 Body mass index [BMI] 31.0-31.9, adult; Z79.1 Long term (current) use of non-steroidal anti-inflammatories (NSAID); Z79.02 Long term (current) use of antithrombotics/antiplatelets

== ENCOUNTER → 2017-02-08 | Day surgery (SDC) | payer OTHER ==
[2017-01-11 11:00] VITALS: Ht 170.2 cm; Wt 90.9 kg
[~2017-02-08] VITALS: Ht 170.2 cm; Wt 90.9 kg
[~2017-02-08] MED LIST changes: +ACET-24 PO; +ACET500T57 PO; -ACETAMINOPHEN 500 MG TAB PO SCH; +ASPEC81 PO; +BUPIVACAINE 0.25% 2.5MG/ML PF 10 ML VIAL ONE; -BUPIVACAINE 0.25% 30 ML VIAL ONE; -BUPIVACAINE 0.5 % 5 MG/1 ML PF 10ML VIAL ONE; -CEFAZOLIN 2000 MG/60 ML D5W 60 ML IV SCH; -CeleBREX 200 MG CAP PO SCH; -DEXAMETHASONE 4 MG TAB PO SCH; +DICL1GEL12 TOP; -FAMOTIDINE 20 MG TAB PO SCH; -GABAPENTIN 300 MG CAP PO SCH; -LACTATED RINGER'S 1000ML 1,000 ML IV SCH; -LACTATED RINGER'S 1000ML 500 ML IV ONE; -LACTATED RINGER'S 1000ML IV SCH; +LIDOCAINE HCL 1% MPF 5 ML VIAL ONE; -MELO7.5T5 PO; -METOCLOPRAMIDE HCL 10 MG TAB PO SCH; +OXYSR10 PO; -ROPIVACAINE 5MG/ML 30 ML 150 MG, BUPIVACAINE/EPINEPHR 0.5% MPF 30 ML, KETOROLAC TROMETH... INFIL SCH; +RXC5 PO; +SENN8.6T13 PO; +SNK PO; -TRANEXAMIC ACID INJ 1,000 MG in SODIUM CHLORIDE 0.9% 100ML 100 ML IV SCH
--- NOTE | 2017-02-08 16:11 | Discharge Instructions ---
Discharge Instructions Date of Service Feb 08, 2017. Visit Reason for Visit: Low Back Pain Discharge Discharge Diagnosis / Problem: low back pain Discharge Goals Goal(s): Decrease discomfort, Improve function Medications Stopped Medications Name(s): ASA and Celebrex Activity Recommendations Activity Limitations: resume your previous activity Anesthesia . Post Anesthesia Instructions: If you have had General Anesthesia or IV Sedation: * Do not drive today. * Resume driving when surgeon permits. * Do not make important decisions or sign legal documents today. * Call surgeon for: 1. Temperature elevations greater than 101 degrees F. 2. Uncontrollable pain. 3. Excessive bleeding. 4. Persistent nausea and vomiting. 5. Medication intolerance (nausea, vomiting or rash). * For nausea and vomiting use only clear liquids such as: tea, soda, bouillon until nausea subsides, then gradually increase diet as tolerated. * If you have any concerns or questions, call your surgeon's office. If physician is unavailable and it is an emergency, call 911 or go to the nearest emergency room. . Diet Recommendations Recommended Home Diet: resume previous diet Procedures Procedures Performed: LEFT L5-S1 MEDIAL BRANCH BLOCK. Pending Studies Studies pending at discharge: no Medical Emergencies . Who to Call and When: Medical Emergencies: If at any time you feel your situation is an emergency, please call 911 immediately. . Non-Emergent Contact Non-Emergency issues call your: Specialist . . "Provider Documentation" section prepared by Brock Lamar. .
[2017-02-08 16:14] VITALS: BP 162/90; PULSE 73; O2SAT 98
--- NOTE | 2017-02-08 16:31 | OPERATIVE REPORT ---
DATE OF OPERATION: 02/08/2017 PREOPERATIVE DIAGNOSIS: Scoliosis, left L5-S1 facet arthropathy with chronic low back pain. POSTOPERATIVE DIAGNOSIS: Same. PROCEDURE: Left L5-S1 medial branch blocks. INDICATIONS: The patient is a 71-year-old female who presents with axial back pain, and it is felt to be generated secondary to facet arthropathy at L5-S1 which showed significant arthritic changes. She presents today for medial branch blocks to confirm that this is indeed the generator of her pain. PHYSICAL EXAMINATION: Pleasant female, seated comfortably. She has point tenderness to palpation of her left L5-S1 facet area, worse with extension, rotation. She has normal lower extremity strength. Negative seated straight leg raises. CONSENT: Verbal and written consent was obtained from the patient. Risks and benefits were reviewed. Risks include but are not limited to abscess and allergic reaction. The patient wishes to proceed. DESCRIPTION OF PROCEDURE: The patient was taken back to the special procedures room of the [facility]. She was maintained in a prone position. Backside was cleansed with Betadine x3 and a dry sterile dressing was applied. Fluoroscope was used to identify the left L5 transverse process and the left sacral ala. The overlying skin was anesthetized with 2.5 mL of lidocaine 1% with a 25-gauge 1.5-inch needle. A 25-gauge 3.5-inch needle was then used to contact bone on the left L5 transverse process junction and the left sacral ala. The area was then anesthetized with 1 mL of bupivacaine 0.25% at each site. DISPOSITION: 1. The patient is taken out into the discharge recovery area where she will be discharged home once discharge criteria have been met. 2. Follow up in the [facility] office in 2-4 weeks. I attest to the content of the Intraoperative Record and any orders documented therein. Any exception s are noted below.
== END | disposition home or self-care (01) ==
LOC: X.SURG 14:00
PROVIDERS: ATTEND Physical Medicine & Rehabilitation
DX: M41.9 Scoliosis, unspecified (principal); M12.9 Arthropathy, unspecified; M54.5 Low back pain; Z79.899 Other long term (current) drug therapy

== ENCOUNTER → 2017-03-07 | Day surgery (SDC) | payer OTHER ==
[2017-03-02 08:03] VITALS: Ht 170.2 cm; Wt 87.3 kg
[~2017-03-07] VITALS: Ht 170.2 cm; Wt 87.3 kg
[~2017-03-07] MED LIST changes: -ACET-24 PO; -ASPEC81 PO; -DICLOFENAC GEL 1% TOP; -LIDOCAINE HCL 1% MPF 5 ML VIAL ONE; +LIDOCAINE MPF 1% INJ 30 ML SDV (L&D) INFIL ONE; -OXYSR10 PO; -RXC5 PO; -SNK PO
[2017-03-07 13:12] VITALS: TEMP 36.3
[2017-03-07 14:22] VITALS: BP 147/81; PULSE 74; O2SAT 100
--- NOTE | 2017-03-07 14:22 | Discharge Instructions ---
Discharge Instructions Date of Service Mar 07, 2017. Visit Reason for Visit: Low Back Pain Discharge Discharge Diagnosis / Problem: low back pain Discharge Goals Goal(s): Decrease discomfort, Improve function Activity Recommendations Activity Limitations: resume your previous activity Anesthesia . Post Anesthesia Instructions: If you have had General Anesthesia or IV Sedation: * Do not drive today. * Resume driving when surgeon permits. * Do not make important decisions or sign legal documents today. * Call surgeon for: 1. Temperature elevations greater than 101 degrees F. 2. Uncontrollable pain. 3. Excessive bleeding. 4. Persistent nausea and vomiting. 5. Medication intolerance (nausea, vomiting or rash). * For nausea and vomiting use only clear liquids such as: tea, soda, bouillon until nausea subsides, then gradually increase diet as tolerated. * If you have any concerns or questions, call your surgeon's office. If physician is unavailable and it is an emergency, call 911 or go to the nearest emergency room. . Diet Recommendations Recommended Home Diet: resume previous diet Procedures Procedures Performed: Left L5-S1 Radio Frequency Denervation Pending Studies Studies pending at discharge: no Medical Emergencies . Who to Call and When: Medical Emergencies: If at any time you feel your situation is an emergency, please call 911 immediately. . Non-Emergent Contact Non-Emergency issues call your: Specialist . . "Provider Documentation" section prepared by Brock Lamar. .
--- NOTE | 2017-03-07 14:55 | OPERATIVE REPORT ---
DATE OF OPERATION: 03/07/2017 PREOPERATIVE DIAGNOSES: Chronic low back pain and left L5-S1 facet arthropathy. POSTOPERATIVE DIAGNOSES: Same. PROCEDURE: Left L5-S1 facet radiofrequency denervation. INDICATIONS: The patient is a 71-year-old white female who had a left L5-S1 medial branch block done and had 8 hours of improvement of greater than 50%, the next morning, the pain came back, she had a positive block. She presents today for denervation procedure to provide her with similar relief for which she had with the block and no changes are noted in her recent medical history. PHYSICAL EXAMINATION: Pleasant female seated comfortably. She has point tenderness to palpation of her left L5-S1 facet area, it is worse with extension and rotation relieved with forward flexion, particularly to the right. CONSENT: Verbal and written consent was obtained from the patient. Risks and benefits were reviewed. Risks include but are not limited to abscess and allergic reaction. The patient wishes to proceed. DESCRIPTION OF PROCEDURE: The patient was taken back to the special procedures room of the [facility] where she was maintained in a prone position. Backside was cleansed with Betadine x3 and a dry sterile dressing was applied. Fluoroscope was utilized to identify the left L5 transverse process junction and the left sacral ala. Overlying skin was anesthetized with 3 mL of lidocaine 1% with a 25-gauge 1.5-inch needle. A 10 cm Martha needle was then placed contacting the bony targets. It was maneuvered so that the patient had sensory stimulation at 0.2 volt level at both L5 and sacral ala. Motor stimulation did not provoke any movement or her twitching in the leg but sort of a localized paraspinal twitching. She then underwent injection after negative aspiration of 1 mL of lidocaine 1% at each of the levels and then underwent radiofrequency denervation 80 degrees 100 seconds x2 at each site; first at the L5 level and then the sacral ala level. Following the denervation, she was anesthetized with an additional 1 mL of bupivacaine 0.25% at each site. DISPOSITION: 1. The patient is taken out into the discharge recovery area where she will be discharged home once discharge criteria have been met. 2. Follow up in the [facility] office in 2-4 weeks. I attest to the content of the Intraoperative Record and any orders documented therein. Any exception s are noted below.
== END | disposition home or self-care (01) ==
LOC: X.SURG 12:39
PROVIDERS: ATTEND Physical Medicine & Rehabilitation
DX: M53.86 Other specified dorsopathies, lumbar region (principal)

== ENCOUNTER 2017-08-07 07:22 | Inpatient (IN) | payer OTHER ==
[2017-07-09 13:38] VITALS: Ht 170.2 cm; Wt 88.1 kg
--- NOTE | 2017-07-09 14:17 | PAT Medication Instructions ---
Service Date Jul 09, 2017. Current Home Medication List Acetaminophen (Acetaminophen), 2 TAB PO Q8H PRN for Pain Aspirin Effervescent (Maricarmen-Kirklin), 2 TAB PO DAILY PRN for Heartburn Celecoxib (CeleBREX), 200 MG PO QAM Denosumab (Prolia), 1 DOSE INJ [id number] Diclofenac Sodium (Topical) (Voltaren 1% Top Gel), 1 DOSE TOP BID PRN for Pain Labetalol Hcl (Labetalol Hcl), 100 MG PO BID Polyethylene (Miralax), 1 DOSE PO QPM Sulfamethoxazole-Trimethoprim (Smz-Tmp Ds), 1 TAB PO BID Zolpidem Tartrate (Ambien), 10 MG PO HS Medication Instructions For Your Scheduled Surgery - Continue as directed: Denosumab (Prolia), 1 DOSE INJ [id number] - Check with surgeon for instructions: Celecoxib (CeleBREX), 200 MG PO QAM Sulfamethoxazole-Trimethoprim (Smz-Tmp Ds), 1 TAB PO BID - Hold the following medications 24 hours prior to surgery: Diclofenac Sodium (Topical) (Voltaren 1% Top Gel), 1 DOSE TOP BID PRN for Pain - Hold the following medications the morning of surgery: Aspirin Effervescent (Maricarmen-Kirklin), 2 TAB PO DAILY PRN for Heartburn - Take the following medications the morning of surgery with a sip of water: Labetalol Hcl (Labetalol Hcl), 100 MG PO BID Acetaminophen (Acetaminophen), 2 TAB PO Q8H PRN for Pain (okay to take up to 4 hours prior to surgery if needed) - Take the following medications as scheduled the night before surgery: Zolpidem Tartrate (Ambien), 10 MG PO HS Polyethylene (Miralax), 1 DOSE PO QPM Labetalol Hcl (Labetalol Hcl), 100 MG PO BID Aspirin Effervescent (Maricarmen-Kirklin), 2 TAB PO DAILY PRN for Heartburn (if needed ) Acetaminophen (Acetaminophen), 2 TAB PO Q8H PRN for Pain (if needed) If you have any questions please call us at [phone] or [phone] or [phone]
[2017-07-09 15:17] LABS: BASO % 0.2 %; BASO ABS # 0.01 K/uL (0-0.2); EOS % 0.9 %; EOS ABS # 0.04 K/uL (0-0.5); HEMATOCRIT 33.7 % (37-47); HEMOGLOBIN 11.5 g/dL (12.0-16.0); LYMPH % 33.6 %; LYMPH ABS # 1.53 K/uL (1.2-3.4); MEAN CELL VOLUME 94.9 fL (80-100); MEAN CORPUSCULAR HEMOGLOBIN 32.4 pg (25-34); MEAN CORPUSCULAR HGB CONC 34.1 g/dl (32-36); MEAN PLATELET VOLUME 9.6 fL (7.4-10.4); MONO % 12.1 %; MONO ABS # 0.55 K/uL (0.11-0.59); NEUT % 53.2 %; NEUT ABS # 2.42 K/uL (1.4-6.5); PLATELET COUNT 254 K/uL (130-400); RED CELL DISTRIBUTION WIDTH CV 14.3 % (11.5-14.5); RED CELL DISTRIBUTION WIDTH SD 49.8 fL (36.4-46.3); WHITE BLOOD COUNT 4.55 K/uL (4.8-10.8)
[2017-07-09 15:32] LABS: ALBUMIN 3.5 gm/dl (3.4-5.0); CALCIUM 8.9 mg/dl (8.5-10.1); CREATININE 1.29 mg/dl (0.60-1.20); POTASSIUM 4.3 mmol/L (3.5-5.1)
[2017-07-09 15:37] LABS: PTT PATIENT 28.5 SECONDS (21.0-31.0)
[2017-07-09 15:56] LABS: HEMOGLOBIN A1C 5.1 % (4.5-5.6)
--- NOTE | 2017-07-11 11:46 | HISTORY & PHYSICAL EXAMINATION ---
DATE OF ADMISSION: 08/07/2017 CHIEF COMPLAINT: Right knee pain. HISTORY OF PRESENT ILLNESS: Petrona is a 71-year-old female with a multiple year history of right knee pain. The patient rates her pain a 9/10. She has pain with her daily activities. She has limited standing and walking tolerance. Pain is worse with weightbearing. The patient has had injections, bracing and PT. She also takes Celebrex without relief. She has failed conservative treatment and is scheduled for right knee replacement. PAST MEDICAL HISTORY: Lyme disease, hypertension. She denies heart disease, diabetes or DVT. PAST SURGICAL HISTORY: Left TKA, right eye surgery. SOCIAL HISTORY: The patient denies alcohol or tobacco use. She lives in a split level home with her and is retired. FAMILY HISTORY: Negative for DVT. MEDICATIONS: Ambien 10 mg daily, Celebrex 200 mg daily, Bactrim-DS, labetalol 100 mg b.i.d. ALLERGIES: None. REVIEW OF SYSTEMS: See HPI. Ten other systems reviewed, all negative. PHYSICAL EXAMINATION: VITAL SIGNS: Height 5 foot 7, weight 196 pounds, BMI 31. GENERAL: This is a well-developed, well-nourished female who is alert and oriented x3. Mood and affect are appropriate. HEAD, EYES, EARS, NOSE, AND THROAT: Normocephalic, atraumatic. Mucous membranes are moist and intact. NECK: Supple without lymphadenopathy. HEART: Regular rate and rhythm without murmurs, rubs or gallops. LUNGS: Clear to auscultation without wheezes or rhonchi. ABDOMEN: Soft and nontender. Bowel sounds are equal and active. EXTREMITIES: No ecchymosis, redness or warmth. She has medial scar. She has varus deformity. Range of motion is from 5-100 degrees with no laxity. She has moderate crepitus with range of motion. She has moderate effusion. She is neurovascularly intact with +5/5 strength. X-RAY EXAMINATION: AP and lateral views show joint space narrowing and osteophyte formation. IMPRESSION: Degenerative joint disease, right knee. PLAN: The patient will be admitted for a right total knee arthroplasty. We will plan on aspirin for DVT prophylaxis. We will have [facility] for home PT upon discharge. Referral has been placed preoperatively.
[2017-08-07] VITALS (8 sets, daily range): BP systolic 109–146; BP diastolic 64–77; PULSE 60–80; TEMP 36.4–36.8; O2SAT 96–98
[~2017-08-07] VITALS: Ht 170.2 cm; Wt 88.1 kg
[~2017-08-07 07:22] MED LIST changes: -ACET500T57 PO; +ACET500T58 PO; +ACETAMINOPHEN 500 MG TAB PO SCH; -ALKA SELTZER PO; +ASPITAB71 PO; -BUPIVACAINE 0.25% 2.5MG/ML PF 10 ML VIAL ONE; +CEFAZOLIN 2000MG IV PUSH 15 ML IV SCH; -CEFU500T16 PO; +CeleBREX 200 MG CAP PO SCH; +DEXAMETHASONE 4 MG TAB PO SCH; +FAMOTIDINE 20 MG TAB PO SCH; -FURO-85 PO; +GABAPENTIN 300 MG CAP PO SCH; +LACTATED RINGER'S 1000ML 1,000 ML IV SCH; +LACTATED RINGER'S 1000ML 500 ML IV SCH; +LACTATED RINGER'S 1000ML IV SCH; -LIDOCAINE MPF 1% INJ 30 ML SDV (L&D) INFIL ONE; +METOCLOPRAMIDE HCL 10 MG TAB PO SCH; -METR1TAB4 PO; +MRLP17X PO; -MULT-506 PO; +ROPIVACAINE 5MG/ML 30 ML 150 MG, BUPIVACAINE 0.5% MPF INJ 30 ML, EpINEphrine HCL INJ 0.... INFIL SCH; -SENN8.6T13 PO; +SULF-302 PO
[2017-08-07] MEDS ORDERED: BUPIVACAINE 0.5 % 5 MG/1 ML PF 10ML VIAL ONE (07:31)
[2017-08-07] MEDS ORDERED: BUPIVACAINE 0.25% 30 ML VIAL ONE (07:31)
[2017-08-07] MEDS ORDERED: ATROPINE SULFATE 0.1 MG/ML 5ML SYR IV PRN (08:30)
[2017-08-07] MEDS ORDERED: ONDANSETRON INJ 2 MG/ML 2 ML VIAL IV PRN ×2 (08:30→11:30)
[2017-08-07] MEDS ORDERED: FENTANYL CITRATE INJ 50 MCG/1 ML 2 ML VIAL IV PRN (08:30)
[2017-08-07] MEDS ORDERED: EpHEDrine SULFATE INJ 50 MG/ML AMP IV PRN (08:30)
[2017-08-07] MEDS ORDERED: LABETALOL HCL IV 5 MG/ML 20ML IV PRN (08:30)
[2017-08-07] MEDS ORDERED: HYDROmorphone INJ 0.5 MG/0.5 ML SYR IV PRN (08:30)
[2017-08-07] MEDS ORDERED: MEPERIDINE HCL 25 MG/ML CARP IV PRN (08:30)
[2017-08-07] MEDS ORDERED: POVIDONE-IODINE OP SOLN 30 ML BTL ONE (08:49)
[2017-08-07] MEDS ORDERED: BACITRACIN 50000 UNIT VIAL ONE (08:49)
[2017-08-07] MEDS ORDERED: ORTHO JOINT ANESTHETIC ONE (08:49)
[2017-08-07] MEDS ORDERED: MIDAZOLAM HCL 1 MG/ML 2ML VIAL ONE ×2 (08:59)
[2017-08-07] MEDS: TRANEXAMIC ACID INJ 1,000 MG x 2 Bags IV SCH ×4 (09:18→13:27)
[2017-08-07] MEDS ORDERED: FENTANYL CITRATE INJ 50 MCG/1 ML 2 ML VIAL ONE (10:17)
[2017-08-07] MEDS ORDERED: PHENYLEPHRINE 100MCG/ML 5ML SYR ONE (10:36)
--- NOTE | 2017-08-07 10:37 | [facility] Post Operative Brief Note ---
Immediate Operative Summary Operative Date Aug 07, 2017. Pre-Operative Diagnosis Degenerative joint disease Post-Operative Diagnosis Same as preop Procedure(s) Performed Right total knee arthroplasty Surgeon Dr. Dorian Rodriguez D[employer] Surgeon(s) Yovani VELAZQUEZ Estimated Blood Loss 5ml Findings Consistent with Post-Op Diagnosis Specimens Right knee bone and tissue Anesthesia Type MAC Spinal Regional Complication(s) none Disposition Disposition: Recovery Room / PACU
--- NOTE | 2017-08-07 10:39 | [facility] Operative Report ---
Operative Report Operative Date Aug 07, 2017. Pre-Operative Diagnosis Degenerative joint disease Post-Operative Diagnosis Same as preop Procedure(s) Performed Right total knee arthroplasty utilizing [employer] journey 2 nonlocked total knee arthroplasty size 4 femur 5 tibia 11 Margaret [address] Dorian Rodriguez [place] Surgeon(s) Yovani VELAZQUEZ Estimated Blood Loss 5ml Findings Patient presents with severe end-stage tricompartmental degenerative joint disease no response to conservative therapy including physical therapy anti- inflammatories relative rest activity modification injections patient's x-rays reveal of subchondral sclerosis cystic changes morphological osteophytes following varus alignment with elbow spurs patient is nonresponse to conservative therapy Specimens Right knee bone and tissue Anesthesia Type MAC Spinal Regional Complication(s) none Disposition Recovery Room / PACU Indications Patient presented failing attempts at conservative management including physical therapy and that Lampros relative rest activity modification injections with subchondral sclerosis marginal osteophytes [id number] changes cystic changes IS with severe tricompartmental degenerative joint disease Description of Procedure After proper prepping and draping of the Right lower extremity anterior midline incision was made over the region of the extensor extensor mechanism after meticulous hemostasis was obtained and maintained in subcutaneous tissues a medial parapatellar incision was made The patella was subluxed lateralward the medial lateral gutter were cleaned from any hypertrophic synovitis and scar tissue of the distal femoral block was placed and the distal femoral osteotomy cut was made subsequently the chamfers anterior and posterior osteotomy cuts were made utilizing the 4-in-1 block the tibia was subsequently subluxed anteriorward medial and ateral meniscal remnants were excised in their entirety remnants of the anterior and posterior cruciate ligaments were excised in their entirety excellent exposure of the proximal tibia was obtained the tibial osteotomy guide was placed on the proximal tibial osteotomy cut was made once again the knee was irrigated with copious amounts of sterile saline solution the patella was subsequently everted lateralward thickened scar tissue around the patella was removed the patella was subsequently cut utilizing a freehand technique and was drilled prepared for final preparation and placement of patella socially flexion-extension gaps were checked and the equal and symmetric trials were placed to the appropriate femoral and tibial trials with poly-spacer being placed for equal flexion and extension gaps and full range of motion including extension to 0 and flexion to 140 the trial components after having been taken to recovery range of motion was subsequently removed meticulous hemostasis was obtained and maintained subsequently a knee block injection of joint cocktail including ropivacaine 0.5% 150 mg. Bupivacaine 0.5 % epinephrine 1-200,030 mL's toradol 30 mg dexamethasone 4 mg ketamine 10 mg clonidine 100 micrograms normal saline solution 30 mg was infiltrated into the soft tissues of the posterior knee medial lateral gutters and periosteal synovium special attention was paid to protect neurovascular structures at all times subsequently trial components having been removed the knee was irrigated with sterile saline solution. debris was removed the proximal tibia was subsequently prepared and was made ready for the placement of the tibial component tibial component was also cemented and tamped into position the femoral component was subsequently placed and cemented in the position the patellar component was subsequently cemented in position because hemostasis once again obtained and maintained wound having been thoroughly irrigated with debridement and debridement lavage was performed as well as a medial parapatellar incision closed with #1 Vicryl in interrupted fashion subcutaneous was closed with #2 Vicryl skin was closed with skin clips. PA-C was necessary for prepping and drapping as well as wound closure of deep fascia Sub cutaneous tissue and skin and was necessary for the case. A sterile compressive dressing was placed patient was taken to recovery in stable condition of report dictated by Michael I attest to the content of the Intraoperative Record and any orders documented therein. Any exceptions are noted below. I attest to the content of the Intraoperative Record and any orders documented therein. Any exceptions are noted below.
[2017-08-07] MEDS ORDERED: TRAMADOL HCL 50 MG TAB PO PRN (11:30)
[2017-08-07] MEDS ORDERED: MoRPHine SULFATE 2 MG/ML CARP IV PRN (11:30)
[2017-08-07] MEDS ORDERED: SOD PHOSPHATE/SOD BIPHOSPHATE ENEMA 132 ML BTL PR PRN (11:30)
[2017-08-07] MEDS ORDERED: MAGNESIUM HYDROXIDE SUSP 30 ML UDC PO PRN (11:30)
[2017-08-07] MEDS ORDERED: KETOROLAC TROMETHAMINE 15 MG/ML VIAL IV. PRN (11:30)
[2017-08-07] MEDS ORDERED: ALUMINUM/MAGNESIUM/SIMETH (MAALOX MAX) 30 ML UDC PO PRN (11:30)
[2017-08-07] MEDS ORDERED: DENOSUMAB INJ SCH (11:30)
[2017-08-07] MEDS ORDERED: BISACODYL 10 MG SUPP PR PRN (11:30)
[2017-08-07] MEDS ORDERED: CEFAZOLIN IV 2,000 MG in DEXTROSE 5% 50ML 50 ML IV SCH (11:30)
--- NOTE | 2017-08-07 11:39 | DIAGNOSTIC IMAGING REPORT ---
R KNEE 1 OR 2 VIEWS ROUTINE CLINICAL HISTORY: AP/LATERAL IN PACU RIGHT KNEE COMPARISON: None. DISCUSSION: Patient is status post right knee total arthroplasty. Good contact between prosthetic and underlying bone. Surgical drains are in position. Expected soft tissue postoperative change IMPRESSION: Anatomic alignment status post total right knee arthroplasty. The above report was generated using voice recognition software. It may contain grammatical, syntax or spelling errors. Electronically signed by: Sameer Schroeder M.D. 08/07/2017 11:38 AM Dictated Date/Time: 08/07/2017 11:38 AM
--- NOTE | 2017-08-07 12:11 | Anesthesiology Progress Note ---
Anesthesia Post Op Note Date & Time Aug 07, 2017 at 12:11 Vital Signs Pain Intensity: 0 Vital Signs Past 12 Hours Date Time Temp Pulse Resp B/P (MAP) Pulse Ox O2 Delivery O2 Flow Rate FiO2 08/07/17 12:05 36.7 08/07/17 12:03 109/55 08/07/17 11:59 68 14 08/07/17 11:59 67 14 96 08/07/17 11:56 105/55 08/07/17 11:54 69 13 08/07/17 11:54 68 13 97 08/07/17 11:51 85/53 08/07/17 11:49 67 14 08/07/17 11:49 67 14 93 08/07/17 11:48 67 14 95 08/07/17 11:48 66 14 08/07/17 11:44 85/54 08/07/17 11:43 70 12 95 08/07/17 11:43 69 12 08/07/17 11:41 85/57 08/07/17 11:38 36.6 08/07/17 11:38 68 14 08/07/17 11:38 69 14 94 08/07/17 11:37 68 13 08/07/17 11:37 67 13 93 08/07/17 11:36 104/59 08/07/17 11:32 71 13 08/07/17 11:32 70 13 95 08/07/17 11:31 112/61 08/07/17 11:27 64 15 98 08/07/17 11:27 65 15 08/07/17 11:26 115/62 08/07/17 11:24 69 14 99 08/07/17 11:24 67 14 08/07/17 11:21 116/59 08/07/17 11:19 65 15 100 08/07/17 11:19 65 15 08/07/17 11:16 125/66 08/07/17 11:14 75 18 08/07/17 11:14 36.9 78 16 126/59 96 Oxymask 10 08/07/17 11:14 74 18 126/59 97 08/07/17 08:23 36.7 80 18 146/70 Room Air Notes Mental Status: alert / awake / arousable, participated in evaluation Pt Amnestic to Procedure: Yes Nausea / Vomiting: adequately controlled Pain: adequately controlled Airway Patency, RR, SpO2: stable & adequate BP & HR: stable & adequate Hydration State: stable & adequate Neuraxial Anesthesia: was administered, sensory block is resolving Anesthetic Complications: no major complications apparent
[2017-08-07] MEDS ORDERED: MoRPHine SULFATE 4 MG/ML 1 ML CARP\\VIAL IV PRN (13:00)
[2017-08-07] MEDS ORDERED: MoRPHine SULFATE 10 MG/ML CARP/VIAL IV PRN (13:00)
[2017-08-07] MEDS: D5W AND 1/2NSS + 20MEQ KCL 1,000 ML IV SCH ×2 (13:29→23:24)
[2017-08-07] MEDS: ACETAMINOPHEN 500 MG TAB PO SCH ×2 (13:30→22:00)
[2017-08-07] MEDS: OXYCODONE HCL IR 5 MG TAB (IMMEDIATE RELEASE) PO PRN ×2 (14:12→18:20)
[2017-08-07] MEDS: CEFAZOLIN IV 2,000 MG in SYRINGE 0 ML IV SCH (18:20)
[2017-08-07] MEDS: DOCUSATE SODIUM 100 MG CAP PO SCH (21:55)
[2017-08-07] MEDS: LABETALOL HCL 100 MG TAB PO SCH (21:57)
[2017-08-07] MEDS: SENNA 8.6 MG TAB PO SCH (21:59)
[2017-08-07] MEDS: ASPIRIN 81 MG ECTAB PO SCH (21:59)
[2017-08-07] MEDS: ZOLPIDEM TARTRATE 10 MG TAB PO SCH (22:04)
[2017-08-08] MEDS: CEFAZOLIN IV 2,000 MG in SYRINGE 0 ML IV SCH (01:30)
[2017-08-08 03:08] VITALS: BP 130/70; PULSE 76; TEMP 36.5; O2SAT 99
[2017-08-08] MEDS: OXYCODONE HCL IR 5 MG TAB (IMMEDIATE RELEASE) PO PRN ×4 (03:10→18:04)
[2017-08-08] MEDS: ACETAMINOPHEN 500 MG TAB PO SCH ×3 (05:19→21:30)
[2017-08-08 07:05] VITALS: BP 94/60; PULSE 69; TEMP 36.6; O2SAT 95
[2017-08-08 07:16] VITALS: BP 98/57; PULSE 81; TEMP 36.5; O2SAT 96
--- NOTE | 2017-08-08 07:41 | Orthopedic Progress Note ---
Orthopedic Progress Note Date of Service Aug 08, 2017. Subjective Post OP Day: 1 (s/p Right TKA) Reports: feeling well, pain controlled w PO medications, Denies: complaints, chest pain, SOB, nausea / vomiting, light headedness, calf pain Objective calves soft nontender, N/V intact, capillary refill less than 2 sec., dressing C /D/I, A&O x3, toes mobile Date Time Temp Pulse Resp B/P (MAP) Pulse Ox O2 Delivery O2 Flow Rate FiO2 08/08/17 07:16 36.5 81 16 98/57 (71) 96 Room Air 08/08/17 03:08 36.5 76 17 130/70 (90) 99 Room Air 08/07/17 23:20 Room Air 08/07/17 22:59 36.4 60 16 120/71 (87) 98 Room Air 08/07/17 21:56 67 131/68 (89) 08/07/17 19:44 36.4 64 16 112/64 (80) 97 Room Air 08/07/17 15:18 36.8 77 16 110/66 (81) 96 Room Air 08/07/17 13:15 77 18 111/72 (85) 97 Nasal Cannula 2.0 08/07/17 12:47 74 16 122/77 (92) 98 Nasal Cannula 2.0 08/07/17 12:20 Nasal Cannula 2.0 08/07/17 12:15 Nasal Cannula 08/07/17 12:15 36.4 69 18 109/67 (81) 97 Nasal Cannula 2.0 08/07/17 12:05 36.7 08/07/17 12:03 109/55 08/07/17 11:59 68 14 08/07/17 11:59 67 14 96 08/07/17 11:56 105/55 08/07/17 11:54 69 13 08/07/17 11:54 68 13 97 08/07/17 11:51 85/53 08/07/17 11:49 67 14 08/07/17 11:49 67 14 93 08/07/17 11:48 67 14 95 08/07/17 11:48 66 14 08/07/17 11:44 85/54 08/07/17 11:43 70 12 95 08/07/17 11:43 69 12 08/07/17 11:41 85/57 08/07/17 11:38 36.6 08/07/17 11:38 68 14 08/07/17 11:38 69 14 94 08/07/17 11:37 68 13 08/07/17 11:37 67 13 93 08/07/17 11:36 104/59 08/07/17 11:32 71 13 08/07/17 11:32 70 13 95 08/07/17 11:31 112/61 08/07/17 11:27 64 15 98 08/07/17 11:27 65 15 08/07/17 11:26 115/62 08/07/17 11:24 69 14 99 08/07/17 11:24 67 14 08/07/17 11:21 116/59 08/07/17 11:19 65 15 100 08/07/17 11:19 65 15 08/07/17 11:16 125/66 08/07/17 11:14 75 18 08/07/17 11:14 36.9 78 16 126/59 96 Oxymask 10 08/07/17 11:14 74 18 126/59 97 08/07/17 08:23 36.7 80 18 146/70 Room Air Laboratory Results 24 Hours: Test 08/08/17 06:35 Assessment & Plan Assessment: POD #1 s/p Right TKA -pt/ot -dvt proph with zandra/scd/asa -prevena -plan for d/c home with HHPT, likely after PT Discharge Planning Discharge Planning: home with home health DVT Prophylaxis: TEDs, SCDs, ASA Therapy: Physical Therapy
--- NOTE | 2017-08-08 07:43 | Discharge Instructions ---
Discharge Instructions Date of Service Aug 08, 2017. Admission Reason for Admission: Right Knee Osteoarthritis Discharge Discharge Diagnosis / Problem: Right TKA Discharge Goals Goal(s): Decrease discomfort, Improve function, Increase independence Activity Recommendations Activity Limitations: as noted below Weightbearing Status: Right weightbearing (as tolerated) . Instructions / Follow-Up Instructions / Follow-Up ACTIVITY RECOMMENDATIONS: SELF CARE INSTRUCTIONS AFTER TOTAL KNEE REPLACEMENT A. You may need to continue a physical therapy program after discharge from the hospital. There are several options available to you. Your doctor will assist you in selecting the best one for you. 1. An out-patient facility 2 to 3 times a week for therapy or home therapy. 2. Continue working on all exercises taught to you in the hospital. Your goals should be to increase bending of your knee to 90 degrees and beyond and to fully straighten your knee. B. You may progress at your own pace from walking with a walker or crutches to a cane; then to no assistive devices. C. Make walking a part of your daily routine. Be up as much as comfortable with rest periods throughout the day. Rest with leg elevation is very important. Use the ice wrap frequently for the first 3-4 weeks. D. There are no restrictions on activities. You may ride in a car, shop, participate in web merchandiser and all social activities. E. Wear the long elastic stockings (GILL hose) 20 hours a day for 2 weeks after surgery. They can be removed several times a day for laundering and for a bath. F. You may shower, no tub baths until cleared by your doctor. SPECIAL CARE INSTRUCTIONS: VERY IMPORTANT TO READ AND REVIEW A. There are a few signs you need to watch for after you are home. Call [facility] [place] if you notice any of the followin. Increased severe knee pain. Some pain is expected especially when you exercise. 2. Increased swelling in your leg or knee; pain or swelling of the calf muscle in either lower leg. 3. Any fluid drainage from the incision. 4. Shortness of breath or chest pain. B. Please call [facility] at if you have any concerns or questions about your operation or recovery. The doctor or his nurse will return your call promptly. C. You must take antibiotics before dental work, bladder, bowel or other surgery. Your doctor will provide you with a permanent care to carry describing this precaution. IMPORTANT: * REMEMBER TO TAKE ASPIRIN, 81 MG, TWICE DAILY FOR 4 WEEKS UNLESS OTHERWISE DIRECTED. THIS IS YOUR BLOOD THINNER. * HIGH RISK PATIENTS MAY BE PRESCRIBED A STRONGER BLOOD THINNER. THIS WILL BE PROVIDED AT DISCHARGE. * CALL IF INCREASED PAIN, REDNESS, DRAINAGE OR FEVER GREATER THAT 101. * WEAR GILL HOSE 20 HOURS PER DAY FOR 2 WEEKS. * Prevena- This is a large suction dressing covering your incision. This will help pull any excess drainage from the wound and allow your incision to heal properly. You may shower with this if you can keep the unit outside of the shower. If any bleeding or leakage is noted please call your doctor's office. This will remain on your incision for 7 days and then should be removed. This can be done yourself or by the home nursing staff if applicable. The entire unit is disposable once removed. Once removed, keep incision clean and dry. If redness or drainage is noted, please call your surgeon. FOLLOW UP VISIT: If appointment is not already scheduled: Please call [facility] [place] to make a follow-up appointment for 2 weeks after your surgery at . Current Hospital Diet Patient's current hospital diet: Regular Diet Discharge Diet Recommended Diet: Regular Diet Procedures Procedures Performed: Right total knee arthroplasty utilizing [employer] journey 2 nonlocked total knee arthroplasty size 4 femur 5 tibia 11 Margaret 32 oval patella Pending Studies Studies pending at discharge: no Laboratory Results Hemoglobin A1c Test 07/09/17 14:27 Range/Units Estimated Average Glucose 100 mg/dl Hemoglobin A1c 5.1 4.5-5.6 % Medical Emergencies . Who to Call and When: Medical Emergencies: If at any time you feel your situation is an emergency, please call 911 immediately. . Non-Emergent Contact Non-Emergency issues call your: Primary Care Provider, Surgeon . "Provider Documentation" section prepared by Sameer Vincent. . VTE Core Measure Inpt VTE Proph given/why not?: Other Anticoagulation (ASA 81mg po bid x 1 month ), TGenoveva Tellez, SCD's [place] Drug Monitoring Program Search Results: patient reviewed within database, no issues identified
[2017-08-08 07:54] LABS: HEMATOCRIT 28.3 % (37-47); HEMOGLOBIN 9.9 g/dL (12.0-16.0); MEAN CELL VOLUME 96.3 fL (80-100); MEAN CORPUSCULAR HEMOGLOBIN 33.7 pg (25-34); MEAN PLATELET VOLUME 9.5 fL (7.4-10.4); PLATELET COUNT 234 K/uL (130-400); RED CELL DISTRIBUTION WIDTH CV 14.3 % (11.5-14.5); RED CELL DISTRIBUTION WIDTH SD 50.8 fL (36.4-46.3)
[2017-08-08 08:28] LABS: CREATININE 1.21 mg/dl (0.60-1.20); POTASSIUM 4.6 mmol/L (3.5-5.1)
[2017-08-08] MEDS: PANTOprazole SOD 40 MG TAB PO SCH (08:44)
[2017-08-08] MEDS: MULTIVITAMIN TAB PO SCH (08:44)
[2017-08-08] MEDS: DOCUSATE SODIUM 100 MG CAP PO SCH ×2 (08:45→21:27)
[2017-08-08] MEDS: ASPIRIN 81 MG ECTAB PO SCH ×2 (08:45→21:28)
[2017-08-08] MEDS: LABETALOL HCL 100 MG TAB PO SCH ×2 (08:46→21:29)
[2017-08-08] MEDS: D5W AND 1/2NSS + 20MEQ KCL 1,000 ML IV SCH (08:47)
--- NOTE | 2017-08-08 09:05 | Anesthesiology Progress Note ---
Anesthesia Post Op Note Date & Time Aug 08, 2017 at 09:05 Vital Signs Pain Intensity: 6.0 Vital Signs Past 12 Hours Date Time Temp Pulse Resp B/P (MAP) Pulse Ox O2 Delivery O2 Flow Rate FiO2 08/08/17 07:16 36.5 81 16 98/57 (71) 96 Room Air 08/08/17 03:08 36.5 76 17 130/70 (90) 99 Room Air 08/07/17 23:20 Room Air 08/07/17 22:59 36.4 60 16 120/71 (87) 98 Room Air 08/07/17 21:56 67 131/68 (89) Notes Mental Status: alert / awake / arousable, participated in evaluation Pt Amnestic to Procedure: Yes Nausea / Vomiting: adequately controlled Pain: adequately controlled Airway Patency, RR, SpO2: stable & adequate BP & HR: stable & adequate Hydration State: stable & adequate Neuraxial Anesthesia: sensory block resolved Anesthetic Complications: no major complications apparent
--- NOTE | 2017-08-08 09:21 | Clinical Documentation Query ---
VIVIANA Pereira : CLINICAL DOCUMENTATION QUERY Patient is a 72 year old female who on 08/07 underwent elective right TKA. EMR review reveals incidental note on admission of BUN, creatinine, and estimated GFR levels of 19 mg/dl, 1.29 mg/dl and 42 ml/min. She is recieving IVF and being monitored with serial chemistries. As appropriate, consider capture of this clinical information as suggested below. Thank you. In your clinical opinion is this patient being managed for: ( ) Chronic kidney disease, stage 3 ( ) Not Agree ( ) Other explanation of clinical findings (Please Explain) ( ) Unable to determine (Please Define) ( ) Need to Discuss The medical record reflects the following clinical findings, treatment, and risk factors. Clinical Indicators: As above Treatment: She is recieving IVF and being monitored with serial chemistries. Risk Factors: Age, hypertension Please clarify and document your clinical opinion in the progress notes and discharge summary. Terms such as "probable", "suspected", "likely", "questionable", "possible", or "still to be ruled out" are acceptable. IF IN AGREEMENT, YOU MUST DOCUMENT ABOVE DIAGNOSTIC STATEMENT IN DAILY PROGRESS NOTES AND DISCHARGE SUMMARY. This document is not part of the patient's record. Thank You, Joseph Sims, RN [phone]
[2017-08-08 15:20] VITALS: BP 125/72; PULSE 75; TEMP 36.7; O2SAT 99
[2017-08-08] MEDS: ZOLPIDEM TARTRATE 10 MG TAB PO SCH (21:27)
[2017-08-08] MEDS: SENNA 8.6 MG TAB PO SCH (21:28)
[2017-08-08] MEDS: CeleBREX 200 MG CAP PO SCH (21:28)
[2017-08-08 21:31] VITALS: BP 155/76; PULSE 68
[2017-08-08 23:35] VITALS: BP 151/80; PULSE 79; TEMP 36.5; O2SAT 96
[2017-08-09 04:26] VITALS: TEMP 36.6
[2017-08-09] MEDS: OXYCODONE HCL IR 5 MG TAB (IMMEDIATE RELEASE) PO PRN ×3 (04:43→13:27)
[2017-08-09] MEDS: ACETAMINOPHEN 500 MG TAB PO SCH (05:43)
[2017-08-09 06:42] VITALS: BP 114/66; PULSE 76; TEMP 36.7; O2SAT 95
[2017-08-09] MEDS: CeleBREX 200 MG CAP PO SCH (07:41)
[2017-08-09] MEDS: LABETALOL HCL 100 MG TAB PO SCH (07:41)
[2017-08-09] MEDS: ASPIRIN 81 MG ECTAB PO SCH (07:41)
[2017-08-09] MEDS: DOCUSATE SODIUM 100 MG CAP PO SCH (07:41)
[2017-08-09] MEDS: MULTIVITAMIN TAB PO SCH (07:41)
[2017-08-09] MEDS: PANTOprazole SOD 40 MG TAB PO SCH (07:41)
--- NOTE | 2017-08-09 08:00 | Orthopedic Progress Note ---
Orthopedic Progress Note Date of Service Aug 09, 2017. Subjective Post OP Day: 2 Reports: feeling well, Denies: chest pain, SOB, nausea / vomiting, light headedness, calf pain Additional Notes: Up this AM eating breakfast. Had some pain behind the knee last night but no longer has it this AM. Hoping to go home today. Objective calves soft nontender, N/V intact, dressing C/D/I (Prevena), A&O x3, toes mobile Date Time Temp Pulse Resp B/P (MAP) Pulse Ox O2 Delivery O2 Flow Rate FiO2 08/09/17 06:42 36.7 76 16 114/66 (82) 95 Room Air 08/09/17 04:26 36.6 08/08/17 23:35 36.5 79 18 151/80 (103) 96 Room Air 08/08/17 21:31 68 155/76 (102) 08/08/17 19:25 Room Air 08/08/17 15:26 Room Air 08/08/17 15:20 36.7 75 18 125/72 (89) 99 Room Air 08/08/17 08:00 Room Air Assessment & Plan Assessment: POD #2 s/p Right TKA -pt/ot -dvt proph with zandra/scd/asa -prevena -plan for d/c home with HHPT, likely after PT today Inhouse Planning Pain Management: Celebrex, Ultram, Morphine, PO Tylenol, Oxy IR DVT Prophylaxis: TEDs, SCDs, ASA Discharge Planning Discharge Planning: home with home health Pain Management: Celebrex, PO Tylenol, Oxy IR DVT Prophylaxis: TEDs, ASA Therapy: Physical Therapy
[2017-08-09] MEDS ORDERED: CLB200 PO (08:04)
[2017-08-09] MEDS ORDERED: ACET500T58 PO (08:04)
[2017-08-09] MEDS ORDERED: RXC5 PO (08:04)
[2017-08-09] MEDS ORDERED: ASPEC81 PO (08:04)
[2017-08-09 08:53] VITALS: BP 114/66; PULSE 76; TEMP 36.7; O2SAT 95
--- NOTE | 2017-08-09 16:38 | Discharge Summary ---
Orthopedic Discharge Summary Admission Date/Reason Aug 07, 2017 at 07:55 Right Knee Osteoarthritis. Discharge Date/Disposition Aug 09, 2017 Home with services Diagnosis Principal Diagnosis: right knee osteoarthritis Procedure(s) Performed Right total knee arthroplasty utilizing [employer]hew journey 2 nonlocked total knee arthroplasty size 4 femur 5 tibia 11 Margaret 32 oval patella Consultations NONE Medication Reconciliation New Medications: Aspirin (Aspirin EC Low Dose) 81 Mg Ectab 81 MG PO BID for 30 Days Celecoxib (Celebrex) 200 Mg Cap 200 MG PO BID, #60 CAP after 30 days, resume your once daily dosing Oxycodone HCl (Oxycodone HCl) 5 Mg Tab 5-10 MG PO Q4H PRN for Pain, #60 TAB Changed Medications: Acetaminophen (Acetaminophen) 500 Mg Tab 2 TAB PO Q8H for 21 Days (Changed from: Removed Reason) After 21 days, go back to "as needed" usage Continued Medications: Denosumab (Prolia) 60 Mg/Ml Bryanna 1 DOSE INJ [id number] Diclofenac Sodium (Topical) (Voltaren 1% Top Gel) 1 % Gel 1 DOSE TOP BID PRN for Pain Labetalol Hcl (Labetalol Hcl) 100 Mg Tab 100 MG PO BID, TAB Polyethylene (Miralax) 17 Gm Pow 1 DOSE PO QPM Sulfamethoxazole-Trimethoprim (Smz-Tmp Ds) 1 Tab Tab 1 TAB PO BID for 7 Days, #14 TAB Zolpidem Tartrate (Ambien) 10 Mg Tab 10 MG PO HS Discontinued Medications: Aspirin Effervescent (Maricarmen-[place]) 1 Tab Tab 2 TAB PO DAILY PRN for Heartburn Celecoxib (CeleBREX) 200 Mg Cap 200 MG PO QAM Admission Physical Exam As per Admitting History & Physical. Hospital Course Patient was a same day admission after undergoing a successful right TKA. she tolerated the procedure well. Post-operatively, her activity was progressed and well tolerated. Please refer to daily progress notes and PT notes for complete details. After exam on 08/09/17, patient felt to be stable for discharge home with HHPT. Patient will f/u in the office in 2 weeks for further evaluation including x-rays and incision check, sooner if having any issues or concerns. Below are pertinent labs/studies during their hospital stay: Last Resulted CBC 08/08/17 06:35 Last Resulted BMP 08/08/17 06:35 Last Vital Signs Documentation Date Time Temp Pulse Resp B/P (MAP) Pulse Ox O2 Delivery O2 Flow Rate FiO2 08/09/17 08:53 36.7 76 16 95 Room Air 08/09/17 06:42 114/66 (82) 08/07/17 13:15 2.0 Discharge Instructions Please refer to the electronic Patient Visit Report (Discharge Instructions) for additional information.
== END 2017-08-09 13:51 | disposition home health service (06) | DRG 470 ==
LOC: C.ACU 07:22 → C.3E 07:55 → ENRESERV 11:48
PROVIDERS: ADMIT Orthopaedic Surgery; ATTEND Orthopaedic Surgery
PROC: 0SRC0J9 Replacement of Right Knee Joint with Synthetic Substitute, Cemented, Open Approach (ICD-10-PCS; principal; 2017-08-07 09:45)
DX: M17.11 Unilateral primary osteoarthritis, right knee (principal); I10 Essential (primary) hypertension; M81.0 Age-related osteoporosis without current pathological fracture; E66.9 Obesity, unspecified; Z68.30 Body mass index [BMI] 30.0-30.9, adult; Z96.652 Presence of left artificial knee joint; Z86.19 Personal history of other infectious and parasitic diseases; Z85.41 Personal history of malignant neoplasm of cervix uteri; Z79.2 Long term (current) use of antibiotics; Z79.899 Other long term (current) drug therapy

== ENCOUNTER 2018-07-22 05:02 | Inpatient (IN) ==
--- NOTE | 2018-07-12 10:36 | Anesthesiology Consultation ---
Date of Service July 12, 2018 Assessment & Plan (1) Encounter for pre-operative examination: Chart Review Chart Review: Acceptable Risk for Surgery and Patient seen in Pre Admission Testing Teaching & Discussion Pre-Anesthesia Teaching/Discussion Notes: Instructed NPO after midnight before surgery,except medications with 15 cc of water. Medication instructions provided according to the PAT guidelines. History Surgery Operation Date: 07/22/18 07:00 Proposed Procedures p Right Total Hip Arthroplasty - Robert Humphries Natalya Height/Weight Height: 5 ft 8 in Weight: 88 kg Allergies Allergy/AdvReac Type Severity Reaction Status Date / Time No Known Allergies Allergy Unverified 07/09/18 15:07 Medications Home Medications Medication Instructions Recorded Confirmed Last Taken cefuroxime axetil 500 mg PO Q12H 07/09/18 07/09/18 Unknown labetalol 200 mg PO BID 07/09/18 07/09/18 Unknown methocarbamol 500 mg PO QID 07/09/18 07/09/18 Unknown sulfamethoxazole-trimethoprim 1 dose PO BID 07/09/18 07/09/18 Unknown zolpidem [Ambien] 1 dose PO HS 07/09/18 07/09/18 Unknown Past Medical History Medical History History of cervical cancer > 30 YEARS AGO - S/P SURGERY; NO CHEMO OR RADIATION Hypertension Lyme disease CHRONIC X 2.5 YEARS- ON CHRONIC ABX; MYALGIAS/JOINT PAIN/FATIGUE Osteoarthritis Spinal stenosis Past Surgical History Surgical History History of arthroscopy B/L KNEE History of cardiac cath 20 YEARS AGO= NO STENTS History of colonoscopy History of eye surgery RT History of radical hysterectomy History of total knee replacement B/L Past Anesthesia History No Hx of Anesthesia Complications and No Family Hx of Anesthesia Complications History of PONV No Motion Sickness Screening History of Motion Sickness: No Social History Smoking Status: Never smoker Do You Dip or Chew Tobacco: No Hx Alcohol Use: No Hx Substance Use: No substance use type: does not use Exercise / Class Metabolic Activity II 4-5 Yardwork/Stairs/Walk up hill Review of Systems Patient denies chest pain, shortness of breath, dyspnea on exertion, cough, wheezing, palpitations. Physical Exam Vital Signs VITALS BP 140/75 P 64 TEMP 97.8 SP02 96%RA RESP 16 Full neck and c-spine range of motion. Full TMJ range of motion. TMD 3 finger breaths Mallampati Score 2 Dentition: full upper denture Lungs: clear throughout to auscultation Cardiac: regular rate and rhythm, no murmurs noted Spine: normal Carotid arteries: negative bruit Extremities: no edema Testing Electrocardiogram Date: 07/12/18 NSR at 71bpm. Low voltage QRS. Chest X-Ray Date: 07/12/18 Findings: + NAD Laboratory Results 07/12/18 10:45 07/12/18 10:45 Blood Type A Positive 07/12/18 10:45 Antibody Screen NEGATIVE 07/12/18 10:45 PT 10.7 Seconds (9.0-12.0) 07/12/18 10:45 INR 1.1 (0.9-1.1) 07/12/18 10:45 APTT 28.4 Seconds (21.0-31.0) 07/12/18 10:45 Urine Color Dark Yellow 07/12/18 10:45 Urine Appearance Clear (Clear) 07/12/18 10:45 Urine pH 5.5 (4.5-7.5) 07/12/18 10:45 Ur Specific [place] 1.027 (1.000-1.030) 07/12/18 10:45 Urine Protein Negative (Negative) 07/12/18 10:45 Urine Glucose (UA) Negative (Negative) 07/12/18 10:45 Urine Ketones Negative (Negative) 07/12/18 10:45 Urine Nitrite Negative (Negative) 07/12/18 10:45 Ur Leukocyte Esterase Negative (Negative) 07/12/18 10:45 07/12/18 10:45 Urine Culture - Final Urine,Clean Catch No growth - less than 1,000 colonies/mL. Surgeon aware of low WBC.
--- NOTE | 2018-07-12 10:39 | PAT Medication Instructions ---
Medication Instructions Date of Service July 12, 2018 Home Medications cefuroxime axetil 500 mg PO Q12H labetalol 200 mg PO BID methocarbamol 500 mg PO QID sulfamethoxazole-trimethoprim 1 dose PO BID zolpidem [Ambien] 1 dose PO HS ASK your surgeon for instructions cefuroxime axetil 500 mg PO Q12H sulfamethoxazole-trimethoprim 1 dose PO BID DO NOT take the morning of surgery methocarbamol 500 mg PO QID Take morning of surgery With a small sip of water, OTHERWISE NOTHING TO EAT OR DRINK AFTER MIDNIGHT: labetalol 200 mg PO BID Take evening before surgery labetalol 200 mg PO BID zolpidem [Ambien] 1 dose PO HS Other Notes If you have any questions please call us at [phone] or [phone] or [phone] or [phone]
--- NOTE | 2018-07-12 11:11 | XRay Report ---
XR chest Pre-admission PA/Lat HISTORY: Preop. COMPARISON: Chest 01/15/2017. FINDINGS: The lungs are clear. Cardiac silhouette is normal in size. No pleural effusions. No pneumot horax. IMPRESSION: No acute process. Electronically signed by: Baldomero Kwong M.D. 07/12/2018 11:10 AM
[2018-07-12 12:13] LABS: Basophils # (auto) 0.01 K/uL (0-0.2); Basophils % (auto) 0.2 %; Eosinophils # (auto) 0.04 K/uL (0-0.5); Hematocrit (blood only) 36.8 % (37-47); Hemoglobin 12.2 g/dL (12.0-16.0); Immature Granulocytes # (auto) 0.01 K/uL (0.00-0.02); Immature Granulocytes % (auto) 0.2 %; Lymphocytes # (auto) 1.12 K/uL (1.2-3.4); Lymphocytes % (auto) 27.8 %; Mean Corpuscular Hgb Conc 33.2 g/dL (32-36); Mean Corpuscular Volume 96.1 fL (80-100); Mean Platelet Volume 9.9 fL (7.4-10.4); Monocytes % (auto) 9.9 %; Neutrophils # (auto) 2.45 K/uL (1.4-6.5); Neutrophils % (auto) 60.9 %; Platelet Count 273 K/uL (130-400); RDW Coefficient of Variation 13.2 % (11.5-14.5); RDW Standard Deviation 46.2 fL (36.4-46.3); Red Blood Count 3.83 M/uL (4.2-5.4); White Blood Count 4.03 K/uL (4.8-10.8)
[2018-07-12 12:14] LABS: Appearance Urine Clear (Clear); Bilirubin Urine Negative (Negative); Color Urine Dark Yellow; Glucose Urine UA Negative (Negative); Ketones Urine Negative (Negative); Leukocyte Esterase Urine Negative (Negative); Nitrite Urine Negative (Negative); Protein Urine Negative (Negative); Specific Gravity Urine 1.027 (1.000-1.030); Urobilinogen Urine Negative (Negative); pH Urine 5.5 (4.5-7.5)
[2018-07-12 12:21] LABS: INR 1.1 (0.9-1.1); Partial Thromboplastin Ratio 1.1; Partial Thromboplastin Time 28.4 Seconds (21.0-31.0); Prothrombin Time 10.7 Seconds (9.0-12.0)
[2018-07-12 12:25] LABS: Albumin Level 3.6 gm/dl (3.4-5.0); BUN Creatinine Ratio 14.1 (10-20); Est GFR (African American) 56.6; Est GFR (Non-African American) 48.9; Potassium 4.5 mmol/L (3.5-5.1)
[2018-07-12 12:28] LABS: Albumin Globulin Ratio 1.1 (0.9-2); Bilirubin,Total 0.5 mg/dl (0.2-1); Globulin 3.3 gm/dl (2.5-4.0); Total Protein 6.9 gm/dl (6.4-8.2)
--- NOTE | 2018-07-21 12:10 | History & Physical Report ---
Date of Service July 21, 2018 Assessment & Plan (1) Degenerative joint disease of right hip: plan is to admit and undergo right paul. History of Present Illness Chief Complaint: right hip pain Primary Care Provider: Eben Buchanan pt with complaints of right hip pain for years. Has tried nsaids, pt and injction with no relief. Pt is ready for paul. Allergies Allergy/AdvReac Type Severity Reaction Status Date / Time No Known Allergies Allergy Unverified 07/09/18 15:07 Home Medications Home Medications Medication Instructions Recorded Confirmed Type cefuroxime axetil 500 mg PO Q12H 07/09/18 07/09/18 History labetalol 200 mg PO BID 07/09/18 07/09/18 History methocarbamol 500 mg PO QID 07/09/18 07/09/18 History sulfamethoxazole-trimethoprim 1 dose PO BID 07/09/18 07/09/18 History zolpidem [Ambien] 1 dose PO HS 07/09/18 07/09/18 History Past Med/Surg History Medical History History of cervical cancer > 30 YEARS AGO - S/P SURGERY; NO CHEMO OR RADIATION Hypertension Lyme disease CHRONIC X 2.5 YEARS- ON CHRONIC ABX; MYALGIAS/JOINT PAIN/FATIGUE Osteoarthritis Spinal stenosis Surgical History History of arthroscopy B/L KNEE History of cardiac cath 20 YEARS AGO= NO STENTS History of colonoscopy History of eye surgery RT History of radical hysterectomy History of total knee replacement B/L Social History Current Living Situation: Spouse Other Information That Helps Us Care for You: No Feels Safe at Home: Yes Safety Concerns: Feels Safe At This Time Smoking Status: Never smoker Do You Dip or Chew Tobacco: No Hx Alcohol Use: No Hx Substance Use: No Beliefs That Will Affect Care: None Preferred Language: Kazakh Communication Ability: Effective Tool Checker Required: No Review of Systems All systems reviewed & are unremarkable except as noted in HPI & below Physical Exam 2 Constitutional: WD/WN, vitals as above Eyes: PERRL, conjunctivae normal, anicteric sclerae Neck: trachea midline, no thyromegaly Respiratory: normal respiratory effort, lungs clear to auscultation Cardiovascular: RRR, no murmur, no edema Gastrointestinal (Abdomen): normal bowel sounds, soft, nontender, no hepatosplenomegaly Musculoskeletal: Hip: + limited ROM of hip and + hip ROM with crepitation
[2018-07-22] MEDS: LR 500ML BOLUS, THEN 15ML/HR IV SCH ×3 (05:40→18:52)
[2018-07-22] MEDS ORDERED: ACETAMINOPHEN 500 MG TAB PO SCH (06:00)
[2018-07-22] MEDS ORDERED: METOCLOPRAMIDE HCL 10 MG TABLET PO SCH (06:00)
[2018-07-22] MEDS ORDERED: FAMOTIDINE 20 MG TAB PO SCH (06:00)
[2018-07-22] MEDS ORDERED: CeleBREX 200 MG CAP PO SCH (06:00)
[2018-07-22] MEDS ORDERED: TRANEXAMIC ACID 1,000 MG **IV Pre-op IV SCH (06:00)
[2018-07-22] MEDS ORDERED: dexAMETHasone 4 MG TAB PO SCH (06:00)
[2018-07-22] MEDS ORDERED: LR 60ML/HR IV SCH (06:00)
[2018-07-22] MEDS ORDERED: CEFAZOLIN 2000MG 2,000 MG/15 ML SYR IV SCH (06:00)
[2018-07-22] MEDS ORDERED: ROPIVACAINE 0.5% HCL/PF 150 MG, BUPIVACAINE 0.5% MPF 30 ML, EPINEPHrine 30MG/30ML (OR U... INFIL SCH (06:00)
[2018-07-22] MEDS ORDERED: BUPIVACAINE 0.5 % 5 MG/1 ML PF 10ML VIAL ONE (06:29)
[2018-07-22] MEDS ORDERED: TRANEXAMIC ACID 1,000 MG **IV Intra-op IV SCH (06:30)
[2018-07-22] MEDS ORDERED: ORTHO JOINT ANESTHETIC ONE (06:34)
[2018-07-22] MEDS ORDERED: BACITRACIN INJ 50,000 UNIT VIAL ONE (06:34)
[2018-07-22] MEDS ORDERED: LIDOCAINE HCL 2% 2 ML VIAL/AMP(20MG/ML) INFIL ONE (06:46)
[2018-07-22] MEDS ORDERED: fentaNYL citrate 100 MCG/2 ML VIAL ONE (06:46)
[2018-07-22] MEDS ORDERED: PROPOFOL IV EMULSION 10 MG/ML 20 ML VIAL IV ONE ×2 (06:46→07:50)
[2018-07-22] MEDS ORDERED: MIDAZOLAM HCL 1 MG/ML 2ML VIAL ONE ×2 (06:47→07:18)
--- NOTE | 2018-07-22 06:47 | History & Physical Bridge Note ---
Date of Service July 22, 2018 History & Physical Bridge Note I have examined the patient, reviewed the History & Physical and in the interval since the performance of the History & Physical I have noted the following changes of clinical significance: no changes noted
[2018-07-22] MEDS ORDERED: fentaNYL citrate 100 MCG/2 ML VIAL IV PRN (06:50)
[2018-07-22] MEDS ORDERED: ONDANSETRON INJ 2 MG/ML 2 ML VIAL IV PRN ×2 (06:50→09:33)
[2018-07-22] MEDS ORDERED: ATROPINE SULFATE 0.1 MG/ML 10ML SYR IV PRN (06:50)
[2018-07-22] MEDS ORDERED: PROMETHAZINE HCL 6.25 MG in SODIUM CHLORIDE 0.9% 50 ML IV PRN (06:50)
[2018-07-22] MEDS ORDERED: ePHEDrine sulfate 50 MG/ML AMP IV PRN (06:50)
[2018-07-22] MEDS ORDERED: POVIDONE-IODINE OP SOLN 30 ML BTL ONE (07:08)
[2018-07-22] MEDS ORDERED: PHENYLEPHRINE 100MCG/ML 5ML SYR ONE (07:48)
[2018-07-22] MEDS ORDERED: ePHEDrine sulfate 50 MG/ML SYR ONE (07:48)
[2018-07-22] MEDS ORDERED: ONDANSETRON INJ 2 MG/ML 2 ML VIAL ONE (07:50)
--- NOTE | 2018-07-22 08:20 | Post Operative Brief Note ---
Immediate Post Op Note v1 Date of Surgery July 22, 2018 Pre & Post Diagnosis Operation Date: 07/22/18 07:00 Pre-Op Diagnosis: Right Hip Osteoarthritis Post-Op Diagnosis: Right Hip Osteoarthritis Procedure Operation Date: 07/22/18 07:00 Actual Procedures p Right Total Hip Arthroplasty - Robert Hoang Surgeon Robert Hoang Fish Protector Nba Buckner PA-C Estimated Blood Loss 40 Findings Consistent with Post-Op Diagnosis Drains Hemovac Drain Complications none Disposition Disposition: Recovery Room
--- NOTE | 2018-07-22 08:24 | Operative Report ---
Post Operative Report Pre & Post Diagnosis Operation Date: 07/22/18 07:00 Pre-Op Diagnosis: Right Hip Osteoarthritis Post-Op Diagnosis: Right Hip Osteoarthritis Procedure Operation Date: 07/22/18 07:00 Actual Procedures p Right Total Hip Arthroplasty - Robert Humphries Natalya IMPLANTS USED: Martha size 56 mm Trident 2 Tritanium cup, one acetabular scsrew , size 4 Accolade 2 stem with 132 degree neck, 36mm X3 liner, 36 0 Ceramic head INDICATIONS: [(./) ] is a pleasant [female)] who has unfortunately failed all forms of conservative measures. Therefore, they have has decided to undergo elective surgical intervention. All risks and benefits of the surgery were discussed with the patient and the family in entirety. PROCEDURE: The patient was brought to the operating room and properly identified by myself, anesthesia, and staff. Patient was given a [(spinal)] anesthetic and placed on the operating table with the [/right)] hip up. The hip was then prepped and draped in the standard orthopedic fashion. We made a standard posterolateral approach over the greater trochanteric area. We then dissected down to subcutaneous tissue until the fascia was identified. We incised the fascia in line with the skin incision. We then split the gluteus patrick muscles with finger dissection. We then put the Charnley retractor in place. We placed the retractor underneath the gluteus medius to expose the piriformis. The piriformis was then tagged with a tag suture and released from the insertion from the greater trochanteric area with the use of electrocautery. We then performed a T capsulotomy and the femoral head and neck were atraumatically dislocated. We then performed femoral neck osteotomy at the pre-template site. We removed the femoral head and neck without difficulty. We then placed the retractor around the acetabulum. We then began to ream the acetabulum to the appropriate size. We then impacted the cup into place and had a very good fixation within the pelvis. We then put the liner in place as well. Then using multiple size approaches from the Accolade 2 system a size #[4] fit very nicely in the proximal femur. I then put trial components in place. WE had very good range of motion, excellent stability, and excellent leg length equality. We removed the trial components and irrigated the wound. We then impacted the components in place and irrigated the wound once more. We then closed the capsule and fascia with a 0 Vicryl suture, the deep dermis with 2-0 Vicryl suture, and finally the skin with a running 3-0 Vicryl subcuticular stitch. A sterile dressing was applied. The patient was taken to the recovery room in stable condition. Due to the complex nature of the procedure, the entire surgery was performed with the operational assistance of [Nba DOS SANTOS)]. The medical assistant cardiology was under direct supervision, was involved in the actual performance of all aspects of the surgical procedure including hemostasis, tissue retraction and incision, instrument management, patient positioning, and wound closure. Surgeon Robert Hoang [employer] Nba Buckner PA-C Estimated Blood Loss 40 Findings Consistent with Post-Op Diagnosis Specimens none Description of Procedure IMPLANTS USED: [] INDICATIONS: [(Mr./Mrs.) ] is a pleasant [(male/female)] who has unfortunately failed all forms of conservative measures. Therefore, they have has decided to undergo elective surgical intervention. All risks and benefits of the surgery were discussed with the patient and the family in entirety. PROCEDURE: The patient was brought to the operating room and properly identified by myself, anesthesia, and staff. Patient was given a [(spinal/ general)] anesthetic and placed on the operating table with the [(left/right)] hip up. The hip was then prepped and draped in the standard orthopedic fashion. We made a standard posterolateral approach over the greater trochanteric area. We then dissected down to subcutaneous tissue until the fascia was identified. We incised the fascia in line with the skin incision. We then split the gluteus patrick muscles with finger dissection. We then put the Charnley retractor in place. We placed the retractor underneath the gluteus medius to expose the piriformis. The piriformis was then tagged with a tag suture and released from the insertion from the greater trochanteric area with the use of electrocautery. We then performed a T capsulotomy and the femoral head and neck were atraumatically dislocated. We then performed femoral neck osteotomy at the pre-template site. We removed the femoral head and neck without difficulty. We then placed the retractor around the acetabulum. We then began to ream the acetabulum to the appropriate size. We then impacted the cup into place and had a very good fixation within the pelvis. We then put the liner in place as well. Then using multiple size approaches from the Accolade 2 system a size #[] fit very nicely in the proximal femur. I then put trial components in place. WE had very good range of motion, excellent stability, and excellent leg length equality. We removed the trial components and irrigated the wound. We then impacted the components in place and irrigated the wound once more. We then closed the capsule and fascia with a 0 Vicryl suture, the deep dermis with 2-0 Vicryl suture, and finally the skin with a running 3-0 Vicryl subcuticular stitch. A sterile dressing was applied. The patient was taken to the recovery room in stable condition. I attest to the content of the Intraoperative Record and any orders documented therein. Any exceptions are noted below.
[2018-07-22] MEDS ORDERED: METOCLOPRAMIDE HCL INJ 5 MG/ML 2 ML VIAL IV PRN (09:33)
[2018-07-22] MEDS ORDERED: MAGNESIUM HYDROXIDE SUSP 30 ML UDC PO PRN (09:33)
[2018-07-22] MEDS ORDERED: ALUMINUM/MAGNESIUM SUSP 30 ML UDC PO PRN (09:33)
[2018-07-22] MEDS ORDERED: BISACODYL 10 MG SUPP PR PRN (09:33)
[2018-07-22] MEDS ORDERED: NALOXONE HCL 0.4 MG/1 ML VIAL/CARP IV PRN (09:33)
--- NOTE | 2018-07-22 09:34 | Anesthesiology Progress Note ---
Date of Service July 22, 2018 Anesthesia Post Procedure Vital Signs Vital Signs: Temp Pulse Pulse Resp BP BP Pulse Ox 07/22/18 09:05 58 L 14 92 07/22/18 09:01 58 L 14 119/61 95 07/22/18 09:00 61 15 95 07/22/18 08:56 61 16 111/64 94 07/22/18 08:55 64 14 95 07/22/18 08:51 61 15 122/67 93 07/22/18 08:50 81 13 95 07/22/18 08:46 68 16 104/53 L 93 07/22/18 08:45 36.0 C L 109 H 96 H 19 104/53 L 90 07/22/18 05:48 36.7 C 79 20 150/81 H 96 Pain Intensity Right Hip: Pain Intensity: 0 Notes Mental Status: alert / awake / arousable Patient Amnestic to Procedure: Yes Nausea / Vomiting: adequately controlled Pain: adequately controlled Airway Patency, RR, SpO2: stable & adequate BP & HR: stable & adequate Hydration State: stable & adequate Neuraxial Anesthesia: was administered and sensory block is resolving Anesthetic Complications: no major complications apparent
[2018-07-22] MEDS: METHOCARBAMOL 500 MG TABLET PO SCH ×4 (10:25→20:17)
[2018-07-22] MEDS: SODIUM CHLORIDE 0.9% 1000ML 1,000 ML IV SCH ×2 (10:25→22:11)
[2018-07-22] MEDS ORDERED: PHENYLEPHRINE HCL 10 MG/ML VIAL ONE (10:26)
[2018-07-22] MEDS: OXYCODONE HCL IR 5 MG TAB (IMMEDIATE RELEASE) PO PRN ×2 (10:26→20:16)
[2018-07-22] MEDS: ASPIRIN 81 MG ECTAB PO SCH ×2 (10:27→20:17)
[2018-07-22] MEDS: MULTIVITAMIN TAB PO SCH (10:27)
[2018-07-22] MEDS: DOCUSATE SODIUM 100 MG CAP PO SCH ×2 (10:27→20:16)
[2018-07-22] MEDS: TRAMADOL HCL 50 MG TABLET PO PRN ×3 (13:02→22:15)
[2018-07-22] MEDS: CEFAZOLIN 2000MG 2,000 MG/15 ML SYR IV SCH ×3 (14:27→22:12)
[2018-07-22] MEDS ORDERED: TRANEXAMIC ACID 1,000 MG in 0.9 % SODIUM CHLORIDE 100 ML IV SCH (15:30)
[2018-07-22] MEDS: LABETALOL HCL 200 MG TAB PO SCH (20:17)
[2018-07-22] MEDS ORDERED: SENNA 8.6 MG TAB PO SCH (21:00)
[2018-07-23] MEDS: OXYCODONE HCL IR 5 MG TAB (IMMEDIATE RELEASE) PO PRN ×2 (05:58→12:58)
[2018-07-23 06:26] LABS: Hematocrit (blood only) 33.2 % (37-47); Hemoglobin 11.2 g/dL (12.0-16.0); Red Blood Count 3.54 M/uL (4.2-5.4); White Blood Count 10.58 K/uL (4.8-10.8)
[2018-07-23 06:27] LABS: Immature Granulocytes # (auto) 0.03 K/uL (0.00-0.02); Immature Granulocytes % (auto) 0.3 %; Lymphocytes # (auto) 0.74 K/uL (1.2-3.4); Mean Corpuscular Hgb Conc 33.7 g/dL (32-36); Mean Corpuscular Volume 93.8 fL (80-100); Mean Platelet Volume 9.5 fL (7.4-10.4); Monocytes # (auto) 1.08 K/uL (0.11-0.59); Monocytes % (auto) 10.2 %; Neutrophils # (auto) 8.73 K/uL (1.4-6.5); Neutrophils % (auto) 82.5 %; Platelet Count 216 K/uL (130-400); RDW Coefficient of Variation 12.9 % (11.5-14.5); RDW Standard Deviation 44.7 fL (36.4-46.3)
[2018-07-23 06:57] LABS: BUN Creatinine Ratio 19.1 (10-20); Calcium 8.1 mg/dl (8.5-10.1); Creatinine Clr Calc Pharmacy 58.1 ml/min; Est GFR (African American) 64.9; Potassium 3.9 mmol/L (3.5-5.1)
[2018-07-23] MEDS ORDERED: dexAMETHasone 10 MG in SYRINGE 0 ML IV SCH (08:00)
--- NOTE | 2018-07-23 08:01 | Anesthesiology Progress Note ---
Date of Service July 23, 2018 Anesthesia Post Procedure Vital Signs Vital Signs: Temp Pulse Pulse Pulse Resp BP BP 07/23/18 07:12 36.4 C L 54 L 17 07/23/18 03:33 36.4 C L 69 16 07/22/18 22:56 36.8 C 78 18 152/81 H 07/22/18 20:08 36.3 C L 62 18 128/75 07/22/18 15:03 36.4 C L 66 17 07/22/18 12:33 73 18 07/22/18 11:30 70 18 07/22/18 10:33 65 18 07/22/18 10:00 59 L 18 07/22/18 09:44 36.4 C L 73 14 07/22/18 09:05 58 L 14 07/22/18 09:01 58 L 14 119/61 07/22/18 09:00 61 15 07/22/18 08:56 61 16 111/64 07/22/18 08:55 64 14 07/22/18 08:51 61 15 122/67 07/22/18 08:50 81 13 07/22/18 08:46 68 16 104/53 L 07/22/18 08:45 36.0 C L 109 H 96 H 19 BP Pulse Ox 07/23/18 07:12 106/70 99 07/23/18 03:33 114/64 98 07/22/18 22:56 92 07/22/18 20:08 98 07/22/18 15:03 122/75 95 07/22/18 12:33 136/83 98 07/22/18 11:30 105/67 99 07/22/18 10:33 117/72 98 07/22/18 10:00 116/73 98 07/22/18 09:44 119/72 07/22/18 09:05 92 07/22/18 09:01 95 07/22/18 09:00 95 07/22/18 08:56 94 07/22/18 08:55 95 07/22/18 08:51 93 07/22/18 08:50 95 07/22/18 08:46 93 07/22/18 08:45 104/53 L 90 Pain Intensity Right Hip: Pain Intensity: 4 Notes Mental Status: alert / awake / arousable and participated in evaluation Nausea / Vomiting: adequately controlled Pain: adequately controlled Airway Patency, RR, SpO2: stable & adequate BP & HR: stable & adequate Hydration State: stable & adequate Neuraxial Anesthesia: sensory block resolved Anesthetic Complications: Pt Satisfied with anesthetic care
[2018-07-23] MEDS: LABETALOL HCL 200 MG TAB PO SCH (08:26)
[2018-07-23] MEDS: MULTIVITAMIN TAB PO SCH (08:26)
[2018-07-23] MEDS: METHOCARBAMOL 500 MG TABLET PO SCH ×2 (08:26→12:59)
[2018-07-23] MEDS: ASPIRIN 81 MG ECTAB PO SCH (08:26)
[2018-07-23] MEDS: DOCUSATE SODIUM 100 MG CAP PO SCH (08:26)
[2018-07-23] MEDS ORDERED: cefUROXime axetil 500 MG TAB PO SCH (09:00)
--- NOTE | 2018-07-23 12:35 | Orthopedic Progress Note ---
Date of Service July 23, 2018 Assessment & Plan (1) Degenerative joint disease of right hip: PT/OT DVT Prophylaxis with SCD's/GILL's/ASA Pain management. Plan for dc to home today if progressing with PT Subjective POD 1 s/p Rigth MARCELL Lying in bed. No complaints. Comfortable. Denies SOB,CP,LH. Pain controlled. Physical Exam 2 Vital Signs (Past 24 Hours): Last Vital Signs Temp 36.5 C 07/23/18 11:46 Pulse 68 07/23/18 11:46 Resp 16 07/23/18 11:46 BP 121/68 07/23/18 11:46 Pulse Ox 95 07/23/18 11:46 Physical Exam: Dressings C/D/I. Thigh soft, NT. Calves soft, NT. NV intact. Toes mobile.
--- NOTE | 2018-07-25 13:22 | Discharge Summary ---
DISCHARGE DIAGNOSIS: Degenerative joint disease, right hip. SECONDARY DIAGNOSES: History of cervical cancer 30 years prior, hypertension, Lyme disease, chronic osteoarthritis, spinal stenosis. CONSULTS: None. COMPLICATIONS: None. PROCEDURES: Right total hip arthroplasty performed by Dr. Hoang on 07/22/2018. BRIEF HISTORY: As dictated in the history and physical. HOSPITAL SUMMARY: The patient was admitted on the above-noted date and had the above-noted surgery performed, which she tolerated well. On the first postoperative day, the patient was lying in bed without complaints. She was comfortable. Denied shortness of breath, chest pain or lightheadedness. Pain was controlled. Vital signs were stable. She was afebrile. Dressings were clean, dry and intact. Thigh was soft and nontender. Calves were soft, nontender. Neurovascularly intact. Toes were mobile. She was started on physical therapy protocol and continued on DVT prophylaxis and pain management. In physical therapy, she ambulated 400 feet with a rolling walker and had gone up and down stairs and was progressing well. She was otherwise remaining stable and it was felt she could be discharged to home on 07/23/2018. For further review, please see chart. LABORATORY AND X-RAY DATA: As per chart. DISCHARGE INSTRUCTIONS: The patient was discharged to home in satisfactory condition on 07/23/2018. Diet: Regular. Activity: Weightbearing as tolerated, right lower extremity with walker. Follow MARCELL instruction sheets that of Dr. Hoang's total hip arthroplasty instructions and follow up with him in 2 weeks. The patient is to call for appointment if one has not been made for you. DISCHARGE MEDICATIONS: Acetaminophen 1000 mg p.o. q. 8 hours, aspirin 81 mg p.o. b.i.d., Senokot 17.2 mg p.o. at bedtime. Resume home meds including Ceftin 500 mg p.o. q. 12 hours, labetalol 200 mg p.o. b.i.d., methocarbamol 500 mg p.o. q.i.d., sulfamethoxazole/trimethoprim 1 dose p.o. b.i.d. and zolpidem 1 dose p.o. at bedtime.
== END 2018-07-23 14:41 | disposition home health service (06) | DRG 470 ==
LOC: ASU 05:02 → 3E 08:51

== ENCOUNTER 2020-11-08 05:03 | Observation (INO) ==
--- NOTE | 2020-10-07 11:33 | PAT Medication Instructions ---
Medication Instructions Date of Service October 07, 2020 Home Medications Medication Instructions Recorded trospium 20 mg tablet 20 mg PO BID #60 tab 08/16/20 nitrofurantoin 100 mg PO BID 7 Days #14 cap 08/19/20 monohydrate/macrocrystals 100 mg capsule tramadol 50 mg tablet 50 mg PO Q6H PRN #20 tab 09/17/20 hydrocodone 5 mg-acetaminophen 325 1 tab PO Q6H PRN #30 tab 09/28/20 mg tablet labetalol 200 mg PO BID methocarbamol 500 mg PO QID zolpidem [Ambien] 1 dose PO HS multivitamin 1 tab PO QAM furosemide 20 mg tablet 20 mg PO QAM trospium 20 mg tablet 20 mg PO BID nitrofurantoin monohydrate/macrocrystals 100 mg capsule 100 mg PO BID 7 Days tramadol 50 mg tablet 50 mg PO Q6H PRN hydrocodone 5 mg-acetaminophen 325 mg tablet 1 tab PO Q6H PRN polyethylene glycol 3350 [Miralax] 17 g PO HS Continue as directed nitrofurantoin monohydrate/macrocrystals 100 mg capsule 100 mg PO BID 7 Days DO NOT take the morning of surgery methocarbamol 500 mg PO QID multivitamin 1 tab PO QAM furosemide 20 mg tablet 20 mg PO QAM trospium 20 mg tablet 20 mg PO BID Take morning of surgery With a small sip of water, OTHERWISE NOTHING TO EAT OR DRINK AFTER MIDNIGHT: labetalol 200 mg PO BID tramadol 50 mg tablet 50 mg PO Q6H PRN (okay to take up to 4 hours prior to surgery if needed) hydrocodone 5 mg-acetaminophen 325 mg tablet 1 tab PO Q6H PRN (okay to take up to 4 hours prior to surgery if needed) Take evening before surgery labetalol 200 mg PO BID methocarbamol 500 mg PO QID zolpidem [Ambien] 1 dose PO HS trospium 20 mg tablet 20 mg PO BID tramadol 50 mg tablet 50 mg PO Q6H PRN (if needed) hydrocodone 5 mg-acetaminophen 325 mg tablet 1 tab PO Q6H PRN (if needed) polyethylene glycol 3350 [Miralax] 17 g PO HS Other Notes If you have any questions please call us at [phone] or [phone] or [phone] or [phone]
--- NOTE | 2020-10-07 11:46 | Anesthesiology Consultation ---
Date of Service October 07, 2020 Assessment & Plan (1) Encounter for pre-operative examination: Chart Review Chart Review: Acceptable Risk for Surgery (pending preop Covid testing results ) and Patient seen in Pre Admission Testing Per PAT appt on 10/07/20, patient denies any recent travel or large group activities. No known Covid positive contacts or Covid related symptoms. No known Covid infectins in the past 90 days. Preop Covid testing scheduled one week prior to surgery per patient= will await results. Educated on importance of self quarantining, social distancing and wearing mask in public both for the patient and household contacts. Right MARCELL 07/22/18= Done under SAB at L2-3 with one attempt. No anesthesia issues noted per anesthesia record. Teaching & Discussion Pre-Anesthesia Teaching/Discussion Notes: Instructed NPO after midnight before surgery,except medications with 15 cc of water. Medication instructions provided according to the PAT guidelines. History Surgery Operation Date: 11/08/20 11:10 Proposed Procedures p Right Reverse Total Shoulder Arthroplasty - Joseph Mckeon DO Height/Weight Height: 5 ft 8 in Weight: 97.1 kg Allergies Allergy/AdvReac Type Severity Reaction Status Date / Time No Known Allergies Allergy Verified 10/04/20 10:44 Medications Home Medications Medication Instructions Recorded Confirmed Last Taken labetalol 200 mg PO BID 07/09/18 10/04/20 11/04/18 09:00 methocarbamol 500 mg PO QID 07/09/18 10/04/20 11/03/18 zolpidem [Ambien] 1 dose PO HS 07/09/18 10/04/20 11/03/18 multivitamin 1 tab PO QAM 10/24/18 10/04/20 11/03/18 furosemide 20 mg tablet 20 mg PO QAM 12/31/19 10/04/20 Unknown trospium 20 mg tablet 20 mg PO BID #60 tab 08/16/20 10/04/20 Unknown tramadol 50 mg tablet 50 mg PO Q6H PRN #20 tab 09/17/20 10/04/20 Unknown hydrocodone 5 mg-acetaminophen 325 1 tab PO Q6H PRN #30 tab 09/28/20 10/04/20 Unknown mg tablet polyethylene glycol 3350 [Miralax] 17 g PO HS 10/04/20 10/04/20 Unknown Past Medical History Medical History History of cervical cancer > 30 YEARS AGO - S/P SURGERY; NO CHEMO OR RADIATION Hypertension Lyme disease CHRONIC X 2.5 YEARS- WAS ON CHRONIC ABX- RECENTLY D/C'ED; MYALGIAS/JOINT PAIN/FATIGUE Osteoarthritis Spinal stenosis Exercise / Class Metabolic Activity II 4-5 Yardwork/Stairs/Walk up hill (ONE FLIGHT OF STAIRS - NO CHEST PAIN OR SOB ) Past Family History Family History Daughter Family history of reaction to anesthesia SLOW TO WAKE Past Surgical History Surgical History History of arthroscopy B/L KNEE History of cardiac cath 20 YEARS AGO= NO STENTS History of colonoscopy History of eye surgery RT History of radical hysterectomy History of right hip replacement History of surgery 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 History of total knee replacement B/L Past Anesthesia History No Hx of Anesthesia Complications and No Family Hx of Anesthesia Complications (with exceptin to daughter- slow to wake - groggy- no ICU stay or reintubation ) History of PONV No Hx of PONV and Hx of Motion Sickness Social History Smoking Status: Never smoker Do You Dip or Chew Tobacco: No Hx Alcohol Use: No Hx Substance Use: No substance use type: does not use Review of Systems Mild LE edema- patient is following with PCP- currently having medication adjustments- encouraged patient to continue to follow with PCP Patient denies chest pain, shortness of breath, dyspnea on exertion, reflux, cough, wheezing, palpitations. No hx of seizures, stroke, DC, apnea/snoring. No hx of blood clots or blood transfusions Physical Exam Vital Signs VITALS BP 164/100 (manually) (Pt did not take BP meds today- will take when she gets home) P 76 TEMP 98.1 SP02 99% RESP 16 Constitutional no acute distress ENMT Mouth: no TMJ clicking Thyromental Distance: > or= 3.5 Finger Breadths (3.5) Mallampati Class: II Full upper denture Missing bottom molar Two crowns on molars Neck + short neck; neck extension not limited Respiratory normal respiratory effort; no respiratory distress Auscultation: lungs clear to auscultation bilaterally; no wheezes Cardiovascular Rate/Rhythm: regular rate and regular rhythm Heart Sounds: no murmur Vessels: no carotid bruit Musculoskeletal Spine: no pain with cervical ROM Extremities: extremities normal to inspection Psychiatric Orientation: alert Testing Laboratory Results 10/07/20 12:04 10/07/20 12:04 PT 10.3 Seconds (9.0-12.0) 10/07/20 12:04 INR 1.0 (0.9-1.1) 10/07/20 12:04 APTT 27.8 Seconds (21.0-31.0) 10/07/20 12:04 Blood Type A Positive 10/07/20 12:04 Antibody Screen NEGATIVE 10/07/20 12:04 *Anemia chronic and stable *Creat chronic and stable Electrocardiogram Date: 10/07/20 Findings: + NSR @ (76bpm) No significant change from Jul 12, 2018 EKG per cardio. Chest X-Ray Date: 10/07/20 Findings: + NAD
--- NOTE | 2020-10-07 12:42 | XRay Report ---
TWO VIEW CHEST CLINICAL HISTORY: Hypertension. Preoperative examination. FINDINGS: PA and lateral chest radiographs are compared to study dated 07/12/2018. The heart is top no rmal for projection. The lungs and pleural spaces are clear. There is no pneumothorax. The skeletal structures are osteopenic. The bony thorax appears intact. Degenerative change is noted in the thorac ic spine. IMPRESSION: No active disease in the chest. ACT 112: Negative or not required by law. Electronically signed by: Tahir Saavedra M.D. 10/07/2020 12:41 PM
[2020-10-07 13:15] LABS: Basophils # (auto) 0.02 K/uL (0-0.2); Basophils % (auto) 0.4 %; Eosinophils # (auto) 0.09 K/uL (0-0.5); Eosinophils % (auto) 1.8 %; Hematocrit (blood only) 34.7 % (37-47); Hemoglobin 11.6 g/dL (12.0-16.0); Immature Granulocytes # (auto) 0.01 K/uL (0.00-0.02); Immature Granulocytes % (auto) 0.2 %; Lymphocytes # (auto) 1.26 K/uL (1.2-3.4); Lymphocytes % (auto) 25.2 %; Mean Corpuscular Hemoglobin 32.1 pg (25-34); Mean Corpuscular Hgb Conc 33.4 g/dL (32-36); Mean Corpuscular Volume 96.1 fL (80-100); Mean Platelet Volume 9.8 fL (7.4-10.4); Monocytes # (auto) 0.83 K/uL (0.11-0.59); Monocytes % (auto) 16.6 %; Neutrophils # (auto) 2.79 K/uL (1.4-6.5); Neutrophils % (auto) 55.8 %; Platelet Count 288 K/uL (130-400); RDW Coefficient of Variation 12.9 % (11.5-14.5); RDW Standard Deviation 45.1 fL (36.4-46.3); Red Blood Count 3.61 M/uL (4.2-5.4)
[2020-10-07 13:35] LABS: BUN Creatinine Ratio 13.3 (10-20); Calcium 9.2 mg/dl (8.5-10.1); Creatinine Clr Calc Pharmacy 48.1 ml/min; Est GFR (African American) 49.1; Est GFR (Non-African American) 42.3; Partial Thromboplastin Ratio 1.1; Partial Thromboplastin Time 27.8 Seconds (21.0-31.0); Prothrombin Time 10.3 Seconds (9.0-12.0)
--- NOTE | 2020-10-08 06:34 | Electrocardiogram Report ---
Test Reason : Blood Pressure : / mmHG Vent. Rate : 076 BPM Atrial Rate : 076 BPM P-R Int : 184 ms QRS Dur : 088 ms QT Int : 404 ms P-R-T Axes : 029 035 035 degrees QTc Int : 454 ms Normal sinus rhythm When compared with ECG of 12-JUL-2018 10:42, No significant change was found Confirmed by Obinna Navarro ([id number]) on 10/08/2020 6:34:32 AM Referred By: Joseph Mckeon Confirmed By:Obinna Navarro
--- NOTE | 2020-11-04 08:25 | History & Physical Report ---
Date of Service November 04, 2020 Assessment & Plan (1) Rotator cuff tear arthropathy of right shoulder: We will proceed with a right reverse shoulder arthroplasty. Postoperatively she will be placed in a sling and kept overnight in the hospital for postoperative medical management. She plans to use energy physical therapy upon discharge. History of Present Illness Chief Complaint: Of arthropathy of the right shoulder. Primary Care Provider: Amy Bentley PA-C Petrona is a pleasant 75-year-old female whom I been treating for a 6-month his tory of shoulder pain. Her shoulder was getting worse. We have tried several injections of her shoulder. I obtained an MRI of her shoulder which showed significant glenohumeral arthritis and a medium sized rotator cuff tear with minimal retraction. After failing conservative treatment, she has elected to proceed with a right reverse shoulder arthroplasty.. Allergies Allergy/AdvReac Type Severity Reaction Status Date / Time No Known Allergies Allergy Verified 10/04/20 10:44 Home Medications Medication Instructions Recorded Confirmed Type labetalol 200 mg PO BID 07/09/18 10/04/20 History methocarbamol 500 mg PO QID 07/09/18 10/04/20 History zolpidem [Ambien] 1 dose PO HS 07/09/18 10/04/20 History multivitamin 1 tab PO QAM 10/24/18 10/04/20 History furosemide 20 mg tablet 20 mg PO QAM 12/31/19 10/04/20 History trospium 20 mg tablet 20 mg PO BID #60 tab 08/16/20 10/04/20 Rx tramadol 50 mg tablet 50 mg PO Q6H PRN #20 tab 09/17/20 10/04/20 Rx hydrocodone 5 mg-acetaminophen 325 1 tab PO Q6H PRN #30 tab 09/28/20 10/04/20 Rx mg tablet polyethylene glycol 3350 [Miralax] 17 g PO HS 10/04/20 10/04/20 History Past Med/Surg History Medical History History of cervical cancer > 30 YEARS AGO - S/P SURGERY; NO CHEMO OR RADIATION Hypertension Lyme disease CHRONIC X 2.5 YEARS- WAS ON CHRONIC ABX- RECENTLY D/C'ED; MYALGIAS/JOINT PAIN/FATIGUE Osteoarthritis Spinal stenosis Surgical History History of arthroscopy B/L KNEE History of cardiac cath 20 YEARS AGO= NO STENTS History of colonoscopy History of eye surgery RT History of radical hysterectomy History of right hip replacement History of surgery 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 Physical Exam Physical examination of the right shoulder, she has active range of motion of 0 to 90 degrees. She has 5 5 motion with external rotation for 5 motion of the full can testing. She has tenderness over the anterior aspect of the shoulder. Negative belly press test.. Constitutional WD/WN, vitals as above Eyes PERRL, conjunctivae normal, anicteric sclerae ENMT external ear and nose normal, oropharynx normal Neck trachea midline, no thyromegaly Respiratory normal respiratory effort Cardiovascular RRR, no murmur, no edema Gastrointestinal (Abdomen) normal bowel sounds, soft, nontender, no hepatosplenomegaly Psychiatric A+Ox3, euthymic affect Results & Data Results & Data Laboratory Results . Diagnostic Findings X-rays of the right shoulder do show moderate osteoarthritis. The humeral heads located in the glenoid. MRI of the right shoulder shows more advanced osteoarthritis with a medium sized rotator cuff tear.. PG Care Time/CCT Total # of Minutes Spent Total Time Spent with Patient: Total time spent is greater than 50% in coordination of care (as documented) at patient's floor/unit and/or counseling patient: Coding Level of Care Code None Diagnoses Rotator cuff tear arthropathy of right shoulder M75.101; M12.811
[2020-11-08] MEDS ORDERED: ceFAZolin 2000MG 2,000 MG/15 ML SYR IV SCH (06:00)
[2020-11-08] MEDS ORDERED: LR 60ML/HR IV SCH (06:00)
[2020-11-08] MEDS ORDERED: FAMOTIDINE 20 MG TAB PO SCH (06:00)
[2020-11-08] MEDS ORDERED: ACETAMINOPHEN 500 MG TAB PO SCH (06:00)
[2020-11-08] MEDS ORDERED: GABAPENTIN 300 MG CAP PO SCH (06:00)
[2020-11-08] MEDS ORDERED: TRANEXAMIC ACID 1,000 MG **IV Intra-op IV SCH (06:00)
[2020-11-08] MEDS ORDERED: ROPIVACAINE 0.5% HCL/PF 150 MG, BUPIVACAINE 0.75% MPF 20 ML, EPINEPHrine 30MG/30ML (OR ... INFIL SCH (06:00)
[2020-11-08] MEDS ORDERED: dexAMETHasone 4 MG TAB PO SCH (06:00)
[2020-11-08] MEDS ORDERED: TRANEXAMIC ACID 1,000 MG **IV Pre-op IV SCH (06:00)
[2020-11-08] MEDS ORDERED: LR 15ML/HR IV SCH (06:00)
[2020-11-08] MEDS ORDERED: BUPIVACAINE 0.5 % 5 MG/1 ML PF 10ML VIAL ONE (06:19)
[2020-11-08] MEDS ORDERED: ORTHO JOINT ANESTHETIC ONE (06:31)
[2020-11-08] MEDS ORDERED: ePHEDrine sulfate 50 MG/ML AMP IV PRN (06:41)
[2020-11-08] MEDS ORDERED: HYDROmorphone INJ 2 MG/ML SYR/VIAL IV PRN (06:41)
[2020-11-08] MEDS ORDERED: fentaNYL citrate 100 MCG/2 ML VIAL IV PRN (06:41)
[2020-11-08] MEDS ORDERED: ONDANSETRON INJ 2 MG/ML 2 ML VIAL IV PRN ×2 (06:41→09:26)
[2020-11-08] MEDS ORDERED: ATROPINE SULFATE 0.1 MG/ML 10ML SYR IV PRN (06:41)
[2020-11-08] MEDS ORDERED: LIDOCAINE HCL 2% 2 ML VIAL/AMP(20MG/ML) INFIL ONE (06:42)
[2020-11-08] MEDS ORDERED: DEXAMETHASONE SOD INJ 4 MG/ML VIAL ONE (06:42)
[2020-11-08] MEDS ORDERED: fentaNYL citrate 100 MCG/2 ML VIAL ONE (06:42)
[2020-11-08] MEDS ORDERED: MIDAZOLAM HCL 1 MG/ML 2ML VIAL ONE ×2 (06:42→06:53)
[2020-11-08] MEDS ORDERED: PROPOFOL IV EMULSION 10 MG/ML 20 ML VIAL IV ONE (06:42)
[2020-11-08] MEDS ORDERED: ONDANSETRON INJ 2 MG/ML 2 ML VIAL ONE (06:42)
--- NOTE | 2020-11-08 06:43 | History & Physical Bridge Note ---
Date of Service November 08, 2020 History & Physical Bridge Note I have examined the patient, reviewed the History & Physical and in the interval since the performance of the History & Physical I have noted the following changes of clinical significance: no changes noted
[2020-11-08] MEDS ORDERED: ROCURONIUM BROMIDE 10 MG/ML 5 ML VIAL IV ONE (07:54)
[2020-11-08] MEDS ORDERED: GLYCOPYRROLATE 0.2 MG/ML VIAL ONE (07:54)
[2020-11-08] MEDS ORDERED: PHENYLEPHRINE 100MCG/ML 5ML SYR ONE (07:54)
[2020-11-08] MEDS ORDERED: NEOSTIGMINE METHYLSULFATE 5 MG/5 ML SYR ONE (07:54)
[2020-11-08] MEDS ORDERED: ePHEDrine sulfate 50 MG/ML SYR ONE (07:59)
--- NOTE | 2020-11-08 08:10 | Operative Report ---
PG Post Operative Report Pre & Post Diagnosis Operation Date: 11/08/20 07:00 Pre-Op Diagnosis: Right Shoulder cuff arthropathy with tendinopathy of the long head of the biceps tendon Post-Op Diagnosis: Right Shoulder cuff arthropathy with tendinopathy of the long head of the biceps tendon I identified the patient and participated in the time-out.: Yes Procedure Operation Date: 11/08/20 07:00 Actual Procedures p Right Reverse Total Shoulder Arthroplasty(Right) with open biceps tenodesis as a distinct and separate procedure (modifier 59)- Joseph Mckeon DO Surgeon Joseph Mckeon DO Director Corporate Compliance Joseph Landers PAC Estimated Blood Loss 300 Findings Consistent with Post-Op Diagnosis Specimens Right humeral head Complications none Disposition Disposition: Recovery Room Indications Petrona is a pleasant 75-year-old female who is been ill with chronic increasing right shoulder pain. X-ray showed some moderate arthritis. MRI showed more severe arthritis with a medium rotator cuff tear. After failing conservative treatment, she elected proceed with a right reverse shoulder arthroplasty. Description of Procedure A CPT code modifier 59: The long head of the biceps tendon was enlarged and inflamed consistent with tendinopathy. A tenodesis was opted. This was a separate and distinct portion of the procedure. For these reasons, a CPT code modifier 59 will be added to this case. Implants used: I used a [employer] Comprehensive reverse total shoulder arthroplasty system with a size 12 press fit micro humeral stem, a +3 offset humeral tray and a standard humeral bearing, a 25 mm small augment baseplate with a 6.5 mm central screw and superior and inferior locking screws, and a size 40 mm eccentric glenosphere. Petrona arrived at [facility] for the above procedure. She was seen in the preoperative holding area and the operative extremity was identified and signed. She was given a preoperative antibiotic, TXA, and an interscalene nerve block. She was taken back to the operating room, laid on table in supine position, and put under general anesthesia. She was then put into the beachchair position. The shoulder was then prepped and draped in sterile fashion. A timeout was done and the patient and the operative extremity was properly identified. A deltopectoral approach was used. Dissection was taken down through the fascia and the deltoid was retracted laterally and the conjoined tendon was retracted medially. The anterior shoulder was exposed. The biceps groove was opened up and the biceps tendon was examined extensively. The biceps tendon demonstrated enlargement and inflammatory changes consistent with longstanding inflammation in the context of osteoarthritis and cuff arthropathy. The long head of the biceps tendon was then tenodesed to the upper border of the pectoralis major. This was a separate and distinct portion of the procedure. The subscapularis was then directly released off the lesser tuberosity with a peel technique. The inferior capsule was released and the humeral head was dislocated. A canal finding reamer was sent down the center of the humeral canal. Sequential reaming up to a size 12 reamer was done. Off that reamer, a proximal humeral resection guide was placed. The proximal humerus was resected at 135 of inclination and 25 of retroversion. Osteophytes were then removed and the glenoid was exposed. Time was spent doing a complete capsular and labral release. The glenoid guide was then placed in the inferior aspect of the glenoid. A 3.2 mm Steinmann pin was then placed into the glenoid vault at 10 of inclination. The glenoid baseplate was then reamed. The final size 25 mm small augment baseplate was then impacted in the place. A 6.5 mm central screw was then p laced followed by superior and inferior locking screws. A 40 mm eccentric glenosphere was then impacted into place. Surrounding soft tissues were then injected with 100 cc an orthopedic pain control cocktail. The proximal humerus was then exposed. Sequential broaching of the humerus up to a size 12 broach was done. Off that broach a +3 offset humeral tray was trialed. The shoulder was then reduced, brought through a full range of motion, and felt to be stable. The shoulder was then dislocated and the broach was removed. The final size 12 micro press-fit humeral stem was then impacted into place. A standard humeral bearing was then snapped onto a +3 offset humeral tray. The humeral tray was then impacted onto the humeral stem. The shoulder was once again reduced, brought through a full range of motion, and felt to be stable. The subscapularis was then tenodesed back to the lesser tuberosity with transosseous FiberWire sutures and side to side sutures with the arm in 45 of external rotation. A dilute betadyne lavage was then done for 3 minutes. The joint was then irrigated with normal saline solution. Hemostasis was obtained. The interval was closed with 2-0 Vicryl suture. The skin was then closed with 2-0 Vicryl and kalli. A Silverlon dressing was placed and the arm was rested in a regular arm sling. She was then extubated and transferred to a hospital bed. She taken to the postanesthesia care unit in stable condition. She tolerated the procedure well. Joseph Landers PA-C, was present for the entire procedure. He was critical for patient positioning, prepping, draping, retraction exposure, wound closure and application of sterile dressing. I attest to the content of the Intraoperative Record and any orders documented therein. Any exceptions are noted below.
--- NOTE | 2020-11-08 09:19 | Anesthesiology Progress Note ---
Date of Service November 08, 2020 Anesthesia Post Procedure Vital Signs Vital Signs: Temp Pulse Pulse Resp BP Pulse Ox 11/08/20 09:10 36.3 C L 62 17 128/70 98 11/08/20 09:00 65 19 131/70 98 11/08/20 08:50 60 15 105/84 97 11/08/20 08:40 64 16 121/64 99 11/08/20 08:30 36.2 C L 73 17 130/63 98 11/08/20 05:45 36.7 C 84 18 146/77 H 98 Transfer of Care Handoff Completed per policy Notes Mental Status: alert / awake / arousable and participated in evaluation Patient Amnestic to Procedure: Yes Nausea / Vomiting: adequately controlled Pain: adequately controlled Airway Patency, RR, SpO2: stable & adequate BP & HR: stable & adequate Hydration State: stable & adequate Anesthetic Complications: no major complications apparent and Pt Satisfied with anesthetic care
--- NOTE | 2020-11-08 09:25 | XRay Report ---
XR shoulder LT min 2V routine HISTORY: 75 years-old Female Post shoulder surgery right shoulder total joint arthroplasty COMPARISON: Shoulder radiographs 09/28/2020 TECHNIQUE: 2 views of the right shoulder FINDINGS: Right shoulder total joint arthroplasty demonstrates satisfactory alignment. Expected soft tissue swe lling with deep tissue air. Overlying skin kalli are noted. Moderate degeneration of the AC joint. No acute fracture, malalignment or unexpected foreign body. IMPRESSION: Total joint arthroplasty with expected postoperative changes. ACT 112: Negative or not required by law. The above report was generated using voice recognition software. It may contain grammatical, syntax o r spelling errors. Electronically signed by: Bk Vizcarra M.D. 11/08/2020 9:24 AM
[2020-11-08] MEDS ORDERED: MAGNESIUM HYDROXIDE SUSP 30 ML UDC PO PRN (09:26)
[2020-11-08] MEDS ORDERED: NALOXONE HCL 0.4 MG/1 ML VIAL/CARP IV PRN (09:26)
[2020-11-08] MEDS ORDERED: bisacodyL 10 MG SUPP PR PRN (09:26)
[2020-11-08] MEDS ORDERED: METOCLOPRAMIDE HCL INJ 5 MG/ML 2 ML VIAL IV PRN (09:26)
[2020-11-08] MEDS ORDERED: HYDROmorphone INJ 0.5 MG/0.5 ML SYR IV PRN (09:26)
[2020-11-08] MEDS: SODIUM CHLORIDE 0.9% 1000ML 1,000 ML IV SCH ×2 (09:29→19:05)
[2020-11-08] MEDS: MULTIVITAMIN TAB PO SCH (10:17)
[2020-11-08] MEDS: FUROSEMIDE 20 MG TAB PO SCH (10:17)
[2020-11-08] MEDS: DOCUSATE SODIUM 100 MG CAP PO SCH ×2 (10:17→21:17)
[2020-11-08] MEDS: LABETALOL HCL 200 MG TAB PO SCH ×2 (10:17→21:17)
[2020-11-08] MEDS: KETOROLAC TROMETHAMINE 15 MG/ML VIAL IV SCH ×3 (10:18→21:17)
[2020-11-08] MEDS: ACETAMINOPHEN 500 MG TAB PO SCH ×2 (13:50→21:17)
[2020-11-08] MEDS: TROSPIUM 20 MG SCH ×2 (15:21→23:35)
[2020-11-08] MEDS: ceFAZolin 2000MG 2,000 MG/15 ML SYR IV SCH ×2 (15:21→23:35)
[2020-11-08] MEDS: oxyCODONE HCL IR 5 MG TAB (IMMEDIATE RELEASE) PO PRN ×2 (16:52→21:16)
[2020-11-08] MEDS ORDERED: SENNA 8.6 MG TAB PO SCH (21:00)
[2020-11-08] MEDS ORDERED: ZOLPIDEM TARTRATE 10 MG TAB PO SCH (21:00)
[2020-11-09] MEDS: KETOROLAC TROMETHAMINE 15 MG/ML VIAL IV SCH ×2 (03:59→09:55)
[2020-11-09] MEDS: ACETAMINOPHEN 500 MG TAB PO SCH (05:13)
--- NOTE | 2020-11-09 07:00 | Orthopedic Progress Note ---
Date of Service November 09, 2020 Assessment & Plan (1) Status post reverse arthroplasty of right shoulder: Overall she is doing well. She is not any much pain in the right shoulder. She will be seen by physical therapy today for ambulation and range of motion exercises. She can be discharged home later today. She will follow- up with orthopedics in 2 weeks. Prudencio Russ was seen and examined at bedside this morning. Overall she is doing very well. She denies any pain in the right shoulder. She was able to get some sleep last night. She has no complaints.. Review of Systems All systems reviewed & are unremarkable except as noted in HPI & below. Physical Exam On physical examination the right shoulder, the dressing is clean and dry. She is wearing her sling as instructed. The nerve block is still in effect.. Results & Data Results & Data Laboratory Results . Diagnostic Findings Postoperative x-rays of the right shoulder show the prosthesis to be in anatomic alignment without any evidence of fracture, dislocation, or loosening. PG Care Time/CCT Total # of Minutes Spent Total Time Spent with Patient: Total time spent is greater than 50% in coordination of care (as documented) at patient's floor/unit and/or counseling patient: Coding Level of Care Code 68150 Post Operative Follow-Up Diagnoses Status post reverse arthroplasty of right shoulder Z96.611
--- NOTE | 2020-11-09 07:01 | Discharge Summary ---
Date of Service November 09, 2020 Admission HPI (Per Admitting) Petrona is a pleasant 75-year-old female whom I been treating for a 6-month history of shoulder pain. Her shoulder was getting worse. We have tried several injections of her shoulder. I obtained an MRI of her shoulder which showed significant glenohumeral arthritis and a medium sized rotator cuff tear with minimal retraction. After failing conservative treatment, she has elected to proceed with a right reverse shoulder arthroplasty.. Admission Exam (Per Admitting) Physical examination of the right shoulder, she has active range of motion of 0 to 90 degrees. She has 5 5 motion with external rotation for 5 motion of the full can testing. She has tenderness over the anterior aspect of the shoulder. Negative belly press test.. Principal Diagnosis Same as "Discharge Diagnosis" noted below under Discharge Instructions. Discharge Exam On physical examination the right shoulder, the dressing is clean and dry. She is wearing her sling as instructed. The nerve block is still in effect.. Discharge Data Procedures Performed Operation Date: 11/08/20 07:00 Actual Procedures p Right Reverse Total Shoulder Arthroplasty(Right) - Joseph Mckeon DO Ordered Studies 11/08/20 05:00 US - OR guided needle placemen Routine Hospital Course (1) Status post reverse arthroplasty of right shoulder: On November 08, 2020 Petrona arrived at [facility] and underwent a right reverse shoulder replacement without complication. She had a general anesthetic and a right interscalene nerve block. Postoperatively she was placed in a sling and transferred to the general orthopedic floors. Her hospital course was uneventful. On postop day #1 her vital signs were stable and her pain was well controlled. She was able to participate well with physical therapy doing ambulation and range of motion exercises. She was then discharged home. She will follow-up with orthopedics in 2 weeks. PG Care Time/CCT Total # of Minutes Spent Total Time Spent with Patient: Total time spent is greater than 50% in coordination of care (as documented) at patient's floor/unit and/or counseling patient: Discharge Plan Discharge Items Patient Disposition: Home - Home Health Services Reason For Visit: Right Shoulder Osteoarthritis, Right Bicept Tenoni Discharge Diagnosis: Right reverse shoulder replacement Activity: As commented below Non-emergency contact: Surgeon Call non-emergency contact if: your wound has increased redness and your wound has increased drainage Follow-up/Referrals: Amy Bentley PA-C [Primary Care Provider] - Diet: Regular Addtl Attending Provider Instructions: Activity and Therapy Recommendations: * If you are using [facility] then therapy will be provided at your home until they feel you have accomplished all of your goals. * If you are using [facility] then Physical Therapy will be provided until they feel you are ready to start Outpatient Physical Therapy. * If you are not using home therapy then Outpatient Physical Therapy should start about 3-5 days from your day of surgery. Therapy will last about 8-12 weeks * Wear your sling for 3 weeks, unless otherwise instructed. You may remove your sling to shower and to dress, but otherwise, you should be in your sling at all times, including while sleeping * The shoulder replacement is very stable and you can use your hand while in the sling * You were shown a series of exercises in the hospital. Do these exercises daily including the exercises you were shown in physical therapy. Medications: * Narcotic You will likely be sent home from the hospital with a prescription for the narcotic pain medication that worked best throughout your stay. * Other medications may be prescribed for specific circumstances. If you have any questions, please call the office at . * Resume previous home medications unless otherwise instructed Dressing Care: Leave the Silverlon dressing in place for 7 days. After 7 days you may remove the dressing. If the incision is not draining then you may leave the kalli open to air. If there is a little bit of drainage or if the kalli are getting stuck on your clothing then cover the incision with a dry dressing. The kalli will be removed at your 2 week follow-up appointment. Showering: You may shower with the Silverlon dressing in place. Do not let the shower spray hit the dressing directly. Pat the Silverlon dressing dry. If the dressing becomes wet underneath, then simply remove the dressing. Keep the incision dry until you are 7 days out from the day of surgery. After 7 days you may remove the Silverlon dressing and shower with the kalli exposed. Let soapy water run over the kalli and pat them dry. Do not scrub or soak the incision. Things To Watch For: * Drainage from the incision site that occurs more than one week after your surgery. * Increased redness at the incision site. * Fever above 102 degrees Fahrenheit. * Unusual chest pain or shortness of breath. * Call [facility] at with any of the above problems Follow-Up Visit: Follow-up with Dr. Mckeon's PA (Joseph Landers) 2-3 weeks after your day of surgery. He will remove your kalli and answer any questions. If you have any additional questions or concerns, Dr Mckeon is usually in the office at the same time and will be available An appointment was probably scheduled when you signed-up for surgery in the office. If you have any questions call More detailed instructions as well as Frequently Asked Questions were provided in a folder by our office when you signed-up for surgery. Please review these instructions when you get home. If you have any further questions or concerns, please feel free to call the office at [phone] Pending Studies at Discharge: No Stand-Alone Forms: My [facility] Medications and DC Order Prescriptions: New oxycodone 5 mg Tablet 5 mg PO Q4H PRN (Reason: pain) Qty: 30 RF: 0 Continued furosemide [Lasix] 20 mg tablet 20 mg PO QAM RF: 0 trospium 20 mg tablet 20 mg PO BID Qty: 60 RF: 6 multivitamin Tablet 1 tab PO QAM RF: 0 labetalol 200 mg Tablet 200 mg PO BID RF: 0 zolpidem [Ambien] 10 mg Tablet 1 dose PO HS RF: 0 methocarbamol 500 mg Tablet 500 mg PO QID RF: 0 polyethylene glycol 3350 [Miralax] 17 gram Powder In Packet 17 g PO HS RF: 0 Discontinued hydrocodone-acetaminophen 5-325 mg tablet 1 tab PO Q6H PRN (Reason: pain) Qty: 30 RF: 0 Discharge Orders: Discharge Order (Routine); Ordered 11/09/20 Ordered By: Jospeh Mckoen Admission Data Admit Date/Time: 11/08/20 08:02 Attending Provider: Joseph Mckeon Admit Provider: Joseph Mckeon Primary Care Provider: Amy Bentley
[2020-11-09] MEDS ORDERED: dexAMETHasone 4 MG TAB PO SCH (08:00)
[2020-11-09] MEDS: LABETALOL HCL 200 MG TAB PO SCH (08:34)
[2020-11-09] MEDS: MULTIVITAMIN TAB PO SCH (08:35)
[2020-11-09] MEDS: DOCUSATE SODIUM 100 MG CAP PO SCH (08:35)
[2020-11-09] MEDS: FUROSEMIDE 20 MG TAB PO SCH (08:35)
[2020-11-09] MEDS: TROSPIUM 20 MG SCH (08:36)
== END 2020-11-09 12:29 | disposition home health service (06) ==
LOC: ASU 05:03 → INTOOBSV 08:02 → 3E 08:02